=== PATIENT | female | born 1945 | race Caucasian/White ===

== ENCOUNTER 2023-06-17 23:24 | Inpatient (IN) | payer OTHER ==
[~2023-06-17] VITALS: Ht 162.6 cm; Wt 89.3 kg
[2023-06-18] VITALS (77 sets, daily range): BP systolic 78–153; BP diastolic 34–138
--- NOTE | 2023-06-18 01:40 | NUR ---
ARRIVAL PATIENT ARRIVED TO ICU 2 VIA FLIGHT CREW. PATIENT TRANSFER TO ICU BED WITH SLIDER SHEET AND PLACED ON ICU MONITORS. PATIENT OPENS EYES SLIGHTLY AND MOANING, MOVING ALL EXTREMITIES AND RESISTING HAVING ARMS AND LEGS MOVED. PATIENT INCONT OF MEDIUM DARK BROWN STOOL, ANUS AND PERIAREA RED AND BLEEDING. COCCYX WITH LARGE BLACK WOUND, UPPER BACK LEFT SCAPULA WITH ABRASION AND WOUND. BOTH HEALS WITH PRESSURE WOUNDS. ABRASION TO CHIN. BEDBATH DONE AND PICTURES TAKEN OF WOUNDS. TREMOR TO BOTH UPPER ARMS WITH STIMULI. NATION IN PLACE (PLACED AT [facility] IN THEIR ED) DRAINING HAZY EPIFANIO URINE. DOCTOR KIMBERLEY IN TO SEE PATIENT SEE ORDERS.
[2023-06-18 02:26] LABS: Base Excess Venous -5.7 mmol/L; Bicarbonate Venous 20.5 mmol/L (24.0-30.0); PCO2 Venous 28.9 mmHg (38-42); pH Blood Venous 7.42 (7.34-7.37)
[2023-06-18 02:30] LABS: BASOPHILS ABSOLUTE AUTO 0.05 K/mm3 (0.00-0.23); BASOPHILS PERCENT AUTO 0 % (0-2); EOSINOPHILS PERCENT AUTO 0 % (0-6); Hemoglobin 10.7 g/dL (11.5-16.0); IMMATURE GRAN ABSOLUTE AUTO 0.29 K/mm3 (0.00-0.10); IMMATURE GRAN PERCENT AUTO 2 % (0-1); LYMPHOCYTES ABSOLUTE AUTO 0.68 K/mm3 (0.84-5.20); LYMPHOCYTES PERCENT AUTO 4 % (21-46); MONOCYTES ABSOLUTE AUTO 1.27 K/mm3 (0.16-1.47); MONOCYTES PERCENT AUTO 8 % (4-13); Mean Corpuscular HGB 29.2 pg (26.0-34.0); Mean Corpuscular HGB Conc 33.4 g/dL (31.5-36.5); Mean Corpuscular Volume 87 fL (80-100); Mean Platelet Volume 10.2 fL (9.1-12.4); NEUTROPHILS ABSOLUTE AUTO 13.88 K/mm3 (1.96-9.15); NEUTROPHILS PERCENT AUTO 86 % (41-73); Platelet Count 288 K/mm3 (150-400); RDW Coefficient Variation 14.9 % (11.7-14.2); RDW Standard Deviation 47.9 fL (35.1-46.3); Red Blood Cell Count 3.66 M/mm3 (3.80-5.20); White Blood Cell Count 16.17 K/mm3 (4.00-11.30)
[2023-06-18 03:15] LABS: Magnesium, Blood 2.8 mg/dL (1.6-2.4)
[2023-06-18 03:17] LABS: Albumin, Blood 1.7 g/dL (3.4-5.0); Albumin/Globulin Ratio 0.5 (0.8-1.8); Bilirubin, Total 0.3 mg/dL (0.1-1.0); Calcium, Blood 8.3 mg/dL (8.5-10.1); Creatinine, Blood 6.67 mg/dL (0.40-1.00); Globulin, Blood 3.5 g/dL (2.2-4.0); Phosphorus, Blood 6.3 mg/dL (2.5-4.9); Potassium, Blood 4.7 mmol/L (3.5-5.5); Total Protein, Blood 5.2 g/dL (6.4-8.2)
[2023-06-18 03:18] LABS: Bun/Creatinine Ratio 28.2 (12.0-20.0)
[2023-06-18 03:31] LABS: Source, Urine Foley catheter
[2023-06-18 03:49] LABS: Blood, Urine 5+ (Neg); Glucose Qualitative, Urine Neg (Neg); Ketones, Urine Neg (Neg); Leukocyte Esterase, Urine 3+ (Neg); Nitrite, Urine Neg (Neg); Protein, Urine 2+ (Neg); Urobilinogen, Urine NORM (Normal)
[2023-06-18 03:59] LABS: Bilirubin, Urine 2+ (Neg)
[2023-06-18 04:00] LABS: Appearance, Urine Turbid (Clear); Color, Urine Amber (P-Yellow)
[2023-06-18] MEDS ORDERED: ACET500 PO (04:00)
[2023-06-18] MEDS ORDERED: ALMACONE SUSPE355 ML PO (04:03)
[2023-06-18] MEDS ORDERED: ASCO500 PO (04:03)
[2023-06-18] MEDS ORDERED: ATOR10 PO (04:04)
[2023-06-18] MEDS ORDERED: THERA-D2000 UNIT PO (04:05)
[2023-06-18] MEDS ORDERED: GABA100 PO (04:08)
[2023-06-18] MEDS ORDERED: Voltaren100 GM TOP (04:08)
[2023-06-18 04:11] LABS: Source, Urine Foley catheter
[2023-06-18] MEDS ORDERED: XOPENEX HFA15 GM INH (04:11)
[2023-06-18 04:12] LABS: Bacteria Many /hpf; Red Blood Cells, Urine 25-50 /hpf (0-2); Squamous Epithelial Cells Few /hpf (Few); White Blood Cells, Urine 25-50 /hpf (0-5)
[2023-06-18] MEDS ORDERED: LISI20 PO (04:12)
[2023-06-18] MEDS ORDERED: METO25 PO (04:13)
[2023-06-18] MEDS ORDERED: OMEP20ER PO (04:13)
[2023-06-18] MEDS ORDERED: ONDA4ODT MM (04:16)
[2023-06-18] MEDS ORDERED: TIZA4 PO (04:19)
[2023-06-18] MEDS ORDERED: WARF5 PO (04:23)
--- NOTE | 2023-06-18 07:00 | NUR ---
SUMMARY PATIENT CONTINUES TO HAVE MOANING OFF AND ON, INCREASING WITH ANY STIMULI AND RESISTANT TO REPOSITIONING. NO MOVEMENT SEEN IN EXTREMITIES, BUT HOLDING ARMS AND LEGS STIFF WHEN ATTEMPTING TO POSITION THEM. AT BASELINE PATIENT IS DEAF AND USES ASL FOR COMMUNICATION . MULTIPLE WOUNDS, WOUND TO UPPER BACK APPEARS TO BE A BLISTER BUT IS BLACK AT BASE, NO DRAINAGE. COCCYX WOUND BLACK WITH SEROSANG DRAINAGE, SWAB SENT TO LAB. RECTAL AREA BRIGHT RED EXCORIATED WITH SKIN BLEEDING MODERATE AMT. COCCYX AND RECTUM VERY FOUL SMELLING. BOTH HEELS WITH PRESSURE WOUNDS WITH SKIN INTACT. ALL WOUNDS CLEANSED WITH SKINTEGRITY AND COVERED WITH FOAM DRESSING. CHIN HAS ABRASION THAT WAS CLEANSED AND LEFT OPEN TO AIR. HYPOTENSION CONTINUES, RESPONDING WELL TO IV FLUID BOLUS, BUT NOT MAINTAINING AFTER BOLUS COMPLETE. DOCTOR KIMBERLEY AWARE OF AM LABS, PROVIDING NEW ORDERS. NATION DRAINING HAZY EPIFANIO URINE.
--- NOTE | 2023-06-18 07:15 | NUR ---
Assumed care of pt at 0700. Report received from Alis ENCARNACION. Per report, patient is deaf. Encephalopathic and unable to meaninfully interact with mitten sewer. Moans and yells spontaneously, increased in frequency and volume with pressure stimulus. SpO2 90% or greater room air. SR per monitor, rate 90s. BP low. SBP 90s with MAP 55-60. LR bolus finishing during report. Mcdonald catheter placed at sending hospital with yellow urine output.
[2023-06-18 07:55] LABS: International Normalized Ratio 3.46; Prothrombin Time Results 33.9 Sec (9.7-11.5)
[2023-06-18 08:43] LABS: U Amphetamine Screen Not Detected; U Barbituate Screen Not Detected; U Benzodiazapine Screen Not Detected; U Buprenorphine Screen Not Detected; U Cannabinoids Screen Not Detected; U Cocaine Screen Not Detected; U Methadone Screen Not Detected; U Methamphetamine Screen Not Detected; U Opiates Screen Not Detected; U Oxycodone Screen Not Detected; U Phencyclidine Screen Not Detected; U Propoxyphene Screen Not Detected
--- NOTE | 2023-06-18 08:44 | NUR ---
Nephrology and surgical consult notified by transmitter engineer in charge. This RN placed call to Dr Suresh to discuss pt's blood pressure. Provider prescribed additional LR bolus now.
[2023-06-18 09:55] LABS: Creatinine, Blood 5.52 mg/dL (0.40-1.00); Potassium, Blood 4.3 mmol/L (3.5-5.5)
[2023-06-18 09:56] LABS: Bun/Creatinine Ratio 31.5 (12.0-20.0)
--- NOTE | 2023-06-18 11:03 | NUR ---
Discussed pt's BP with Dr Woo and Dr Suresh. Receiving 1/[address] Woo. PICC line being placed by hemodialysis charge nurse in anticipation of vasopressor administration. Currently on 2 LPM via face mask.
[2023-06-18 11:51] LABS: Source, Urine Foley catheter
[2023-06-18 11:56] LABS: Bilirubin, Urine Neg (Neg); Blood, Urine 5+ (Neg); Glucose Qualitative, Urine Neg (Neg); Ketones, Urine Neg (Neg); Leukocyte Esterase, Urine 1+ (Neg); Nitrite, Urine Neg (Neg); Protein, Urine 2+ (Neg); Urobilinogen, Urine NORM (Normal)
[2023-06-18 12:14] LABS: Appearance, Urine Hazy (Clear); Bacteria Few /hpf; Color, Urine Yellow (P-Yellow); Granular Casts 0-2 /lpf (0); Hyaline Casts 0-2 /lpf (0-2); Squamous Epithelial Cells Rare /hpf (Few)
[2023-06-18 12:36] LABS: Hemoglobin 9.9 g/dL (11.5-16.0); Mean Corpuscular HGB 28.6 pg (26.0-34.0); Mean Corpuscular Volume 87 fL (80-100); Mean Platelet Volume 10.7 fL (9.1-12.4); NRBC ABSOLUTE 0.02 K/mm3 (0.00-0.02); NRBC Auto 0.1 /100 WBC (0.0-0.2); Platelet Count 276 K/mm3 (150-400); RDW Coefficient Variation 14.9 % (11.7-14.2); RDW Standard Deviation 47.5 fL (35.1-46.3); Red Blood Cell Count 3.46 M/mm3 (3.80-5.20); White Blood Cell Count 13.45 K/mm3 (4.00-11.30)
[2023-06-18 12:58] LABS: BAND PERCENT MAN 6 % (0-8); BASOPHILS PERCENT MAN 0 % (0-2); EOSINOPHILS PERCENT MAN 0 % (0-6); LYMPHOCYTES ABSOLUTE MAN 1.07 K/mm3 (0.84-5.20); LYMPHOCYTES PERCENT MAN 8 % (21-46); METAMYELOCYTE ABSOLUTE MAN 0.67 K/mm3 (0.00-0.00); METAMYELOCYTE PERCENT MAN 5 % (0-0); MONOCYTES ABSOLUTE MAN 0.67 K/mm3 (0.16-1.47); MONOCYTES PERCENT MAN 5 % (4-13); NEUTROPHILS ABSOLUTE MAN 11.02 K/mm3 (1.96-9.15); SEG NEUTROPHILS PERCENT MAN 76 % (41-73); TOTAL CELLS COUNTED 100
[2023-06-18 16:15] LABS: Vancomycin, Random 15.7 ug/mL
--- NOTE | 2023-06-18 18:31 | NUR ---
SUMMARY Neuro/Musc: Pt is reportedly deaf. Opens eyes spontaneously, makes eye contact and tracks this RN as she moves across the room. No response when this RN talks to her. Pt moans with all care provided. No words produced. Remains drowsy and often rests with eyes closed in absence of stimulation. Pt is not able to meaningfully cooperate with engineering aide at this time. Pupils 4 mm, PERRL. Moves all extremities with equal strength and range of motion. Total care for all ADLs. Resp: Lungs clear, dim in bases. Required 2-4 LPM for majority of day for sporadic SpO2 desaturation. Currently on room air and SpO2 is 96%. Cardiac: Sinus rhythm this shift. Levophed started at 2 mcg/min and increased to 4 mcg/min towards end of shift. BP stable. PICC line inserted this shift. GI: Rectal tube inserted due to liquid brown BM and severely excoriated perianal area. : Good urine output from cristobal catheter. 24 hour urine collection in progress. Skin: All wounds cleansed with saline this shift. Upper back blood blister popped, dressed with mepitel, ABD pad, medipore tape. Sacrum yielded large amount of purulent pink drainage. Dressed with ABD pad and medipore tape. Mepilex to bilat heels were no longer intact so new mepilex was appiled and pink "egg crate" heel protectors added. Miconazole powder added to groin and breast folds. Psych: No friends/family/etc. called unit for update on patient.
[2023-06-19] VITALS (97 sets, daily range): BP systolic 69–152; BP diastolic 6–77
[2023-06-19 03:39] LABS: Hematocrit 29.6 % (33.0-51.0); Hemoglobin 9.8 g/dL (11.5-16.0); Mean Corpuscular HGB 28.4 pg (26.0-34.0); Mean Corpuscular HGB Conc 33.1 g/dL (31.5-36.5); Mean Corpuscular Volume 86 fL (80-100); Mean Platelet Volume 10.3 fL (9.1-12.4); Platelet Count 260 K/mm3 (150-400); RDW Coefficient Variation 14.6 % (11.7-14.2); RDW Standard Deviation 45.6 fL (35.1-46.3); Red Blood Cell Count 3.45 M/mm3 (3.80-5.20); White Blood Cell Count 11.83 K/mm3 (4.00-11.30)
[2023-06-19 03:52] LABS: International Normalized Ratio 3.2; Prothrombin Time Results 31.5 Sec (9.7-11.5)
[2023-06-19 04:02] LABS: BAND PERCENT MAN 2 % (0-8); BASOPHILS PERCENT MAN 0 % (0-2); EOSINOPHILS ABSOLUTE MAN 0.11 K/mm3 (0.00-0.68); EOSINOPHILS PERCENT MAN 1 % (0-6); LYMPHOCYTES PERCENT MAN 11 % (21-46); MONOCYTES ABSOLUTE MAN 0.59 K/mm3 (0.16-1.47); MONOCYTES PERCENT MAN 5 % (4-13); MYELOCYTE ABSOLUTE MAN 0.11 K/mm3 (0.00-0.00); MYELOCYTE PERCENT MAN 1 % (0-0); SEG NEUTROPHILS PERCENT MAN 80 % (41-73); TOTAL CELLS COUNTED 100
[2023-06-19 04:05] LABS: Magnesium, Blood 2.3 mg/dL (1.6-2.4); Uric Acid, Blood 10.7 mg/dL (2.6-6.0)
[2023-06-19 04:06] LABS: Albumin, Blood 1.6 g/dL (3.4-5.0); Albumin/Globulin Ratio 0.5 (0.8-1.8); Bilirubin, Total 0.3 mg/dL (0.1-1.0); Bun/Creatinine Ratio 41.9 (12.0-20.0); Calcium, Blood 8.3 mg/dL (8.5-10.1); Creatinine, Blood 3.27 mg/dL (0.40-1.00); Globulin, Blood 3.2 g/dL (2.2-4.0); Phosphorus, Blood 4.2 mg/dL (2.5-4.9); Potassium, Blood 3.6 mmol/L (3.5-5.5); Total Protein, Blood 4.8 g/dL (6.4-8.2)
--- NOTE | 2023-06-19 06:04 | NUR ---
PATIENT OPENS EYES SPONTANEOUSLY AND MINIMALLY MOVES ALL EXTREMITIES. DOES NOT TRACK STAFF WITH EYES. MOANS WITH ANY STIMULATION. NO RESPONSE TO HAND GESTURES FROM STAFF. SR/ST. LEVOPHED INCREASED TO 6 TO MAINTAIN MAP >65. OXYMASK PLACED ON PATIENT WHILE SLEEPING, ROOM AIR WHEN AWAKE. NPO AND RECTAL TUBE IN PLACE. NATION IN PLACE AND CURRENTLY OBTAINING 24HR URINE COLLECTION. DR MAN UPDATED ON PATIENT LABS.
--- NOTE | 2023-06-19 07:15 | NUR ---
Assumed care of pt at 0700. Report received from Andrew ENCARNACION. Pt opens eyes spontaneously. Able to understand this RN through demostration and reading lips. SpO2 90% or greater with 2 LPM oxymask. SR per monitor. BP stable with 6 mcg/min levophed.
[2023-06-19 12:38] LABS: Protein, Urine Quantitative 39.7 mg/dL (0.0-11.9)
--- NOTE | 2023-06-19 12:48 | NUR ---
BLOOD CULTURE RESULT FROM [facility]: Francoise FROM [facility] CALLED TO REPORT 1 SET OF POSITIVE BLOOD CULTURES FROM SAMPLE DRAWN 06/17 - PRELIMINARY REPORT OF GRAM POSITIVE BACILLI.
[2023-06-19 16:26] LABS: Vancomycin, Random 16.4 ug/mL
--- NOTE | 2023-06-19 18:02 | NUR ---
SUMMARY Neuro/Musc/Psych: Alert. Able to understand this RN by reading lips and/turret lathe set up operator demonstration. Able to follow commands; pt stuck out tongue and opened mouth for oral care on demand. Oral care provided. Pt unable to understand to spit out magic mouthwash. Provided with ice chips and pt tolerated these well without signs of aspiration or choking. agency appointments supervisor services provided remotly through laptop around noon, prior to bed bath. Wastewater Operator stated she feels that the patient understood her. During interaction, pt's eyes widened and she maintained attention to computer screen and provided subtle yes/no nods as the heading saw operator signed. Pt unable to reciporicate communication other than nodding head. Pt's upper extremties are rigid and she has poor range of motion to bilateral shoulder, elbows, and wrists. Pt also yells out or moans with any passive ROM that occurs during ADLs. After interacting with virtual heading saw operator for 5-10 minutes, pt became very lethargic and struggled to stay awake. Physical heading saw operator in room to see patient around 1500. She met with Dr Suresh to educate patient on plan of care. The heading saw operator stated she recognizes Mahi and has worked with her before. Patient much more lethargic but appeared to understand the heading saw operator. Interacted with physical heading saw operator even less than the virtual heading saw operator. Through asking questions and receivng subtle yes/no answers, inferred that patient walks with cane at baseline. Pt does not remember falling and is surprised to learn that she is in [place]. Plan for physical heading saw operator to see patient tomorrow between 0730 and 0830. Have attempted to communicate with patient by writing. Patient acknowledges the writing does not seem to understand. Through gesturing this RN inferred that pt typically wears glasses. No glasses in the room at this time. Total care for all ADLs. Dental hygenist in to see patient today. Cleaned a large amount of dried blood from patient's mouth. States that patient severely bit her tongue and some point and there are resultant wounds and ecchymosis to tongue. She recommended chlorhexidine and magic mouthwash. Acknowledges that chlorhexidine for oral care is not standardly used in ICU anymore, but states it wound be best for that patient's mouth at this time. Recommendations given to Dr He and new orders given. Resp: SpO2 90% or greater with 2 LPM with oxymask. Requires O2 while sleeping but it can typically be weaned off while she is awake. Cardiac: SR per monitor. Levophed at 2 mcg/min. GI: Rectal tube in place with scant amount of liquid drainage into bag. : Good urine output into cristobal catheter. Skin: Wounds to back and sacrum were cleaned with skintegrity skin cleanser today and dressed with fresh ABD pad and medipore tape. Dr Wilson in to see patient and stated for pt to be NPO after midnight in anticipation for surgery tomorrow.
--- NOTE | 2023-06-19 22:46 | NUR ---
ASSUMED CARE AT 1900 PATIENT IS ALERT AND ORIENTED TO FOLLOWING COMMANDS AND SELF. DEAF AT BASELINE, NODS NO TO PAIN. 02 SATS 95% ON 2-5L VIA MASK WHILE SLEEPING. HR SR 80s, BP HYPOTENSIVE, LEVOPHED INFUSING TO MAINTAIN MAP >65. DRESSINGS OVER WOUNDS C/D/I. TEMP NATION PATENT AND DRAINING TO GRAVITY. RECTAL TUBE IN PLACE DRAINING LIQUID BROWN TO GRAVITY. PATIENT REPOSITIONED AND ORAL CARE DONE. NPO DUE TO ASPIRIATION RISK.
[2023-06-20] VITALS (67 sets, daily range): BP systolic 86–155; BP diastolic 38–142
[2023-06-20 03:33] LABS: Hematocrit 29.7 % (33.0-51.0); Hemoglobin 9.6 g/dL (11.5-16.0); Mean Corpuscular HGB 28.2 pg (26.0-34.0); Mean Corpuscular HGB Conc 32.3 g/dL (31.5-36.5); Mean Corpuscular Volume 87 fL (80-100); Platelet Count 245 K/mm3 (150-400); RDW Coefficient Variation 14.3 % (11.7-14.2); White Blood Cell Count 11.54 K/mm3 (4.00-11.30)
[2023-06-20 03:49] LABS: International Normalized Ratio 2.1; Prothrombin Time Results 21.1 Sec (9.7-11.5)
[2023-06-20 03:54] LABS: Alanine Aminotransfer (ALT/SGP 98 U/L (12-78); Albumin, Blood 1.5 g/dL (3.4-5.0); Albumin/Globulin Ratio 0.4 (0.8-1.8); Alk Phos 118 U/L (50-136); Anion Gap 7 mmol/L (6-16); Aspartate Aminotrans (AST/SGOT 248 U/L (12-37); Bilirubin, Total 0.4 mg/dL (0.1-1.0); Blood Urea Nitrogen 83 mg/dL (8-24); Bun/Creatinine Ratio 47.4 (12.0-20.0); CO2, Blood 28 mmol/L (21-32); Calcium, Blood 8.6 mg/dL (8.5-10.1); Chloride, Blood 112 mmol/L (98-108); Creatinine, Blood 1.75 mg/dL (0.40-1.00); Globulin, Blood 3.7 g/dL (2.2-4.0); Glomerular Filtration Rate 29 (60-); Glucose, Blood 130 mg/dL (70-99); Phosphorus, Blood 2.7 mg/dL (2.5-4.9); Potassium, Blood 3.2 mmol/L (3.5-5.5); Sodium, Blood 147 mmol/L (136-145); Total Protein, Blood 5.2 g/dL (6.4-8.2); Vancomycin, Random 12.7 ug/mL
--- NOTE | 2023-06-20 06:45 | NUR ---
SHIFT SUMMARY RADHA HAS NOT HAD ANY SIGNIFICANT CHANGES DURING THIS SHIFT. PT IS A&O TO SELF AND MUMBLES WORDS THAT ARE DIFFICULT TO INTERPRET. PT DENIES PAIN EVEN THOUGH THEY CLENCH THEIR ARMS AND GROAN WHEN BEING MOVED. PT HAS BEEN ON AND OFF THE OXIMASK TODAY @2L, 02 SATS CURRENTLY 94%. CARDIAC MONITORING HAS REFLECTED NSR THIS SHIFT, HEART RATE CURRENTLY 79. LEVOPHED IS CURRENTLY ON STANDBY. POTASSIUM CAME BACK AT 3.2 AT 0312, SO ORDERED KCL 100 ML TO RUN AT 50 ML/HR. KCL IS CURRENTLY RUNNING CONCURRENTLY WITH D5 @150. RECTAL TUBE AND TEMP NATION PATENT AND DRAINING TO GRAVITY. WILL CONTINUE TO MONITOR UNTIL CARE IS TRANSITIONED TO DAY SHIFT.
--- NOTE | 2023-06-20 11:21 | NUR ---
Assumed care of pt at 0700. Report received from Qi RN and Myesha RN. Four H Agent, Hannah, at bedside from [id number]. At this time, Dr Preston, Dr Suresh, and Dr Velázquez in to see patient. Additionally, pt worked with Melania from occupational therapy. Patient able to follow directions and provide answers to registered nurse first assistant that were not obvious to hospital staff. Pt continues to have trouble signing and mostly commincates through yes/no nods and mouthing words. Melania discussed ROM concerns with Dr Suresh who stated she would order imaging and provide pain meds. No surgery today; plan to proceed with surgical debridement when patient's INR is less than 1.5
[2023-06-20 12:22] LABS: Potassium, Blood 3.4 mmol/L (3.5-5.5)
--- NOTE | 2023-06-20 18:03 | NUR ---
SUMMARY Neuro/Musc/Psych: Worked with in room historic interpreter this morning. Maintained attention and was interactive for entire duration of historic interpreter's stay. Pt reliably followed commands for OT. The historic interpreter was able to communicate subtle gestures and mouthing of words by the patient to answer the staff's questions. Patient's answers were contextually appropriate. The historic interpreter received many indications that the patient is having pain; Dr Suresh stated plan to prescribe pain medication. When Dr Preston in to see patient, he discussed the importance of surgical debridement as well as the risks. Patient consented to the procedure. Still unable to sign documenation or use hands for ASL due to stiffness and weakness. Noted that patient cannot move LUE when instructed to do so. XRay ordered by Dr Suresh. RUE, RLE, LLE are all stiff and have limited range of motion. Pt up in chair for 4 hours today. While up in chair, pt was assessed by speech therapist with video historic interpreter. Speech therapy consulted because this RN performed bedside swallow exam with patient and noted that she had a dry cough following PO intake. Additionally, swallowing sounded forced and laborious. While conferencing with video historic interpreter, patient had trouble focusing on the computer and was more interested with the people in the room. Able to follow commands through demostration only. New orders placed re: med administration and PO intake. One dose of IV fentanyl given before lifting patient to chair and one dose PO percocet given after pt cleared for meds crushed in applesauce. Patient has been resting for majority of afternoon since receiving Percocet. ADLs: Repositioned Q2H. Total care for all ADLs. CHG bath given. Oral care Q4H and preceeding all PO intake. Resp: Lungs clear, dim in bases. On room air from beginning of shift until approx 1700. Then placed on 2 LPM oxymask due to drop in SpO2 while sleeping. SpO2 currently 97% Cardiac: SR, rate 60s-70s. BP stable. GI: Rectal tube remains in place with drainage of liquid brown stool in collection tubing. Barrier cream to perianal excoriations. : Good urine output from cristobal catheter today. Skin: Dressings changed to upper back and sacrum today. Sacrum pressure sore cleaned with skintegrity skin cleanser. Bilateral heel mepilex and egg crate heel protectors in place.
--- NOTE | 2023-06-20 21:13 | NUR ---
ASSUMED CARE PT AROUSES TO VERBAL/PHYSICAL STIMULI; SOMNULENT AND UNABLE TO STAY AWAKE FOR MORE THAN 2-3 SECONDS. CARPENTER HELPER AT BEDSIDE AND WAS UNABLE TO COMMUNICATE W/ PT. PT WAS ABLE TO SMILE WHEN ASKED TO. PERRLA;VSS. NATION AND RECTAL TUBE PATENT AND DRAINING TO GRAVITY.
--- NOTE | 2023-06-20 22:25 | NUR ---
UPDATE PT IS MORE ALERT AND SPONTANEOUSLY OPENS EYES. PT ABLE TO COMMUNICATE THAT SHE IS IN PAIN W/ SIGN LANGUAGE THAT STRETCH PRESS OPERATOR TAUGHT THIS RN. PT COMMUNICATES WELL WITH NODDING, SHAKING, AND SHRUGGING.
[2023-06-21] VITALS (8 sets, daily range): BP systolic 117–150; BP diastolic 56–64
--- NOTE | 2023-06-21 03:38 | NUR ---
TRANSFER: PT ARRIVED TO PCU 3 FROM ICU 2 AT 0325. PT ALERT, RESPONDS TO NOXIOUS STIMULI. PT DEAF, ABLE TO COMMUNICATE VIA NODDING AND SHAKING HEAD. TRANSFER CONTROLLER LAPTOP AT BEDSIDE. IN PERSON TRANSFER CONTROLLER TO BE IN AT 0800 THIS MORNING. BP STABLE, HR SR 70'S, AFEBRILE, SATS >90% ON ROOM AIR. RESPIRATIONS EVEN AND UNLABORED. PT WITH MUTIPLE WOUNDS, SEE CHART. PLAN FOR POSS I&D TODAY PENDING INR RESULTS. PT CURRENTLY NPO. TEMP NATION IN PLACE DRAINING YELLOW URINE TO GRAVITY. RECTAL TUBE IN PLACE WITH BROWN LIQUID STOOL. D5 GTT IN OBEY @125M/HR. PICC IN OBEY, DRAWS AND FLUSHED. PT REPOS TO L SIDE, FEET FLOATING. BED IN LOW, CALL LIGHT IN REACH.
--- NOTE | 2023-06-21 03:43 | NUR ---
TRANSFER PT TRANSFERRED TO PCU 3 WITH BELONGINGS/MEDS.
[2023-06-21 03:52] LABS: Hematocrit 28.6 % (33.0-51.0); Hemoglobin 9.3 g/dL (11.5-16.0); Mean Corpuscular HGB 28.7 pg (26.0-34.0); Mean Corpuscular HGB Conc 32.5 g/dL (31.5-36.5); Mean Corpuscular Volume 88 fL (80-100); Mean Platelet Volume 10.2 fL (9.1-12.4); Platelet Count 229 K/mm3 (150-400); RDW Coefficient Variation 14.1 % (11.7-14.2); RDW Standard Deviation 45.4 fL (35.1-46.3); Red Blood Cell Count 3.24 M/mm3 (3.80-5.20); White Blood Cell Count 10.71 K/mm3 (4.00-11.30)
[2023-06-21 04:05] LABS: International Normalized Ratio 2.13; Prothrombin Time Results 21.4 Sec (9.7-11.5)
[2023-06-21 04:10] LABS: Albumin, Blood 1.6 g/dL (3.4-5.0); Anion Gap 3 mmol/L (6-16); Blood Urea Nitrogen 43 mg/dL (8-24); Bun/Creatinine Ratio 33.3 (12.0-20.0); CO2, Blood 30 mmol/L (21-32); Calcium, Blood 8.5 mg/dL (8.5-10.1); Chloride, Blood 111 mmol/L (98-108); Creatinine, Blood 1.29 mg/dL (0.40-1.00); Glomerular Filtration Rate 42 (60-); Glucose, Blood 112 mg/dL (70-99); Magnesium, Blood 1.7 mg/dL (1.6-2.4); Phosphorus, Blood 2.2 mg/dL (2.5-4.9); Potassium, Blood 3.6 mmol/L (3.5-5.5); Sodium, Blood 144 mmol/L (136-145)
[2023-06-21 04:24] LABS: BAND PERCENT MAN 9 % (0-8); BASOPHILS PERCENT MAN 1 % (0-2); EOSINOPHILS ABSOLUTE MAN 0.32 K/mm3 (0.00-0.68); EOSINOPHILS PERCENT MAN 3 % (0-6); LYMPHOCYTES ABSOLUTE MAN 1.82 K/mm3 (0.84-5.20); LYMPHOCYTES PERCENT MAN 17 % (21-46); METAMYELOCYTE ABSOLUTE MAN 0.32 K/mm3 (0.00-0.00); METAMYELOCYTE PERCENT MAN 3 % (0-0); MONOCYTES ABSOLUTE MAN 0.85 K/mm3 (0.16-1.47); MONOCYTES PERCENT MAN 8 % (4-13); MYELOCYTE ABSOLUTE MAN 0.32 K/mm3 (0.00-0.00); MYELOCYTE PERCENT MAN 3 % (0-0); NEUTROPHILS ABSOLUTE MAN 6.96 K/mm3 (1.96-9.15); SEG NEUTROPHILS PERCENT MAN 56 % (41-73); TOTAL CELLS COUNTED 100
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
--- NOTE | 2023-06-21 18:51 | NUR ---
PT SUMMARY: NO ACUTE CHANGE SINCE THIS MORNING VITALS REMAINED STABLE, PT TOLERATING PUREE DIET. BED BATH WAS COMPLETED ALL DRESSINGS WERE REDRESSED, EGG CRATE PLACE TO PROMOTOE WOUND HEALING, PT HAS BEEN REPOSITIONED Q2 HRS. NO CALL BACK RECEIVED FROM APS TODAY. VERNA BAEZ TIP BANDING MACHINE OPERATOR LEFT LSIT OF QUESTIONS FOR BLACK ASH WORKER TO ASK THE PT TONIGHT. CLINIMIX RUNNING AT 50 MLS/ HR. PT RESTING IN BED WITH CALL LIGHTS IN REACH, WILL REPORT TO TOSHIA ENCARNACION
[2023-06-22] VITALS: BP 124/58
[2023-06-22 04:19] VITALS: BP 108/45
[2023-06-22 04:44] LABS: Hematocrit 28.9 % (33.0-51.0); Hemoglobin 9.3 g/dL (11.5-16.0)
[2023-06-22 04:59] LABS: Albumin, Blood 1.5 g/dL (3.4-5.0); Anion Gap 3 mmol/L (6-16); Blood Urea Nitrogen 35 mg/dL (8-24); CO2, Blood 28 mmol/L (21-32); Calcium, Blood 8.8 mg/dL (8.5-10.1); Chloride, Blood 118 mmol/L (98-108); Creatinine, Blood 1.06 mg/dL (0.40-1.00); Glomerular Filtration Rate 54 (60-); Glucose, Blood 119 mg/dL (70-99); Magnesium, Blood 1.7 mg/dL (1.6-2.4); Phosphorus, Blood 2.2 mg/dL (2.5-4.9); Sodium, Blood 149 mmol/L (136-145)
[2023-06-22 05:00] LABS: International Normalized Ratio 1.45; Prothrombin Time Results 14.9 Sec (9.7-11.5)
--- NOTE | 2023-06-22 06:13 | NUR ---
SHIFT SUMMARY PT LETHARGIC AND UNABLE TO BE AROUSED AT BEGINNING OF SHIFT. AROUND 0000 PT BECAME MORE ALERT AND WAS ABLE TO FOLLOW COMMMANDS, ABLE TO ANSWER SOME QUESTIONS ALTHOUGH SOME CONFUSION NOTICED. VSS. PT REPORTING PAIN IN LUE AND LLE, ALSO HEAD AND BACK. DECLINES MEDICATION FOR PAIN. DENIES CP OR PRESSURE. DENIES SOB. NATION IN PLACE AND DRAINING TO GRAVITY. RECTAL TUBE IN PLACE WITH NO - VERY MINIMAL OUTPUT. SMALL AMOUNT OF BLOOD NOTED AROUND ANAL AREA. PT REPOSITIONED Q2 OR PRN. PT C/O OF PAIN WITH MOVEMENT. MEPLIEX ON COCCYX CHANGED THIS SHIFT. OTHER MEPILEX C/D/I. PT ASKING FOR AND DRINKING WATER, TOLERATING WELL. CLINIMIX INFUSING PER EMAR. NO ACUTE CHANGES. WILL UPDATE ONCOMING RN.
[2023-06-22 07:42] VITALS: BP 133/62
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
--- NOTE | 2023-06-22 12:11 | NUR ---
DR LYNN AND ANESTHESIOLOGIST CAME BY TO CONSENT PT FOR THE I&D PROCEDURE. PT HAD BREAKFAST THIS MORNING SO TRANG PROCEDURE GOT RESCHEDULED FOR TOMORROW. DR FORBES CAME BY ORDERED MRI FOR POSSIBLE CVA/STROKE D/T RIGHT ARM FLACCIDITY. MRI FORM SIGNED BY PT WITH THE HELP OF THE SOLDERING MACHINE OPERATOR AUTOMATIC. AWAITING FOR MRI TO GET DONE, VITALS HAS BEEN STABLE. WILL CONTINUE TO MONITOR
[2023-06-22 12:17] VITALS: BP 126/59
[2023-06-22 15:45] VITALS: BP 136/58
--- NOTE | 2023-06-22 17:42 | NUR ---
SHIFT SUMMARY: SEE AM NOTES: NO ACUTE CHANGE FOR THE SHIFT, VITALS HAS BEEN STABLE. MRI RESULT WITH NO SIGNIFICANT CHANGE. PT TO BE NPO AFTER MIDNIGHT FOR I&D PROCEDURE TOMORROW. PT WITH GREAT APPETITE EATING ALMOST 100% OF HER MEALS NO ISSUES. PT HAS BEEN REPOSITIONED Q2HRS, BED BATH COMPLETED FOR THE SHIFT DRESSINGSON COCCYX AND BACK WERE CHANGED. RECTAL TUBE REMOVED PT HAD SOME IRRITATION AROUND RECTAL AREA WITH MINIMAL BLEEDING ALSO PT HASNT HAD ANY STOOL OUTPUT FOR THE SHIFT, ATTENDS IN PLACE. HEEL PROTECTORS AND SCD'S IN PLACE. D5W RUNNING AT 75MLS/HR. LAPTOP ASL REMAINED AVAILABLE PT'S EXCEPTIONAL CHILDREN TEACHER ASSISTANT. NO OTHER ISSUES AT THIS TIME, CALL LIGHTS IN REACH WILL REPORT TO ONCOMING SHIFT
[2023-06-22 19:43] VITALS: BP 156/68
--- NOTE | 2023-06-22 23:58 | NUR ---
AT 1945 COMMUNICATED WITH PATIENT USING FIELD LABORATORY OPERATOR APURVA. PATIENT HAVING DIFFICULTY AT TIMES DUE TO WEAKNESS, USING LEFT ARM MORE THAN RIGHT, YET ABLE TO MOVE RIGHT LEG MORE THAN LEFT LEG. PATIENT C/O PAIN WITH SLIGHT MOVEMENTS. PATIENT ABLE TO RECOGNIZED APURVA (FIELD LABORATORY OPERATOR) UNSURE OF DATE, MONTH OR YEAR. NODDING YES WHEN REMINDED THAT SHE IS IN [facility]. PATIENT ASKING WHAT HAPPENED. PATIENT ABLE TO ASSIST WITH REPOSITIONING, BUT REMAINS VERY WEAK. DRESSING TO HEALS, BACK AND COCCYX CD&I. SOWMYA PO MEDICATIONS CRUSHED IN APPLESAUCE. NEEDING ASSISTANCE WITH EATING. PLAN FOR NPO AFTER MIDNOC FOR I&D TO COCCYX WOUND.
[2023-06-23] VITALS (13 sets, daily range): BP systolic 130–154; BP diastolic 55–76
[2023-06-23 04:01] LABS: Hematocrit 27.7 % (33.0-51.0); Hemoglobin 8.9 g/dL (11.5-16.0); Mean Corpuscular HGB 28.7 pg (26.0-34.0); Mean Corpuscular HGB Conc 32.1 g/dL (31.5-36.5); Mean Corpuscular Volume 89 fL (80-100); Mean Platelet Volume 10.1 fL (9.1-12.4); Platelet Count 220 K/mm3 (150-400); RDW Coefficient Variation 13.5 % (11.7-14.2); RDW Standard Deviation 44.5 fL (35.1-46.3); White Blood Cell Count 10.97 K/mm3 (4.00-11.30)
[2023-06-23 04:30] LABS: Albumin, Blood 1.6 g/dL (3.4-5.0); Anion Gap 3 mmol/L (6-16); Blood Urea Nitrogen 27 mg/dL (8-24); Bun/Creatinine Ratio 30.4 (12.0-20.0); CO2, Blood 26 mmol/L (21-32); Calcium, Blood 8.5 mg/dL (8.5-10.1); Chloride, Blood 114 mmol/L (98-108); Creatinine, Blood 0.89 mg/dL (0.40-1.00); Glomerular Filtration Rate 66 (60-); Glucose, Blood 111 mg/dL (70-99); Phosphorus, Blood 2.2 mg/dL (2.5-4.9); Potassium, Blood 4.2 mmol/L (3.5-5.5); Sodium, Blood 143 mmol/L (136-145)
[2023-06-23 04:39] LABS: BAND PERCENT MAN 5 % (0-8); BASOPHILS PERCENT MAN 1 % (0-2); EOSINOPHILS ABSOLUTE MAN 0.32 K/mm3 (0.00-0.68); EOSINOPHILS PERCENT MAN 3 % (0-6); LYMPHOCYTES % ATYPICAL MANUAL 1 % (0-0); LYMPHOCYTES ABSOLUTE MAN 1.09 K/mm3 (0.84-5.20); LYMPHOCYTES PERCENT MAN 9 % (21-46); METAMYELOCYTE ABSOLUTE MAN 0.32 K/mm3 (0.00-0.00); METAMYELOCYTE PERCENT MAN 3 % (0-0); MONOCYTES ABSOLUTE MAN 0.87 K/mm3 (0.16-1.47); MONOCYTES PERCENT MAN 8 % (4-13); MYELOCYTE ABSOLUTE MAN 0.43 K/mm3 (0.00-0.00); MYELOCYTE PERCENT MAN 4 % (0-0); NEUTROPHILS ABSOLUTE MAN 7.78 K/mm3 (1.96-9.15); SEG NEUTROPHILS PERCENT MAN 66 % (41-73); TOTAL CELLS COUNTED 100
--- NOTE | 2023-06-23 05:18 | NUR ---
PLUMBER HELPER NOTE NOTIFIED BY NURSE TO NOT DO 0600 BLOOD SUGAR.
--- NOTE | 2023-06-23 05:50 | NUR ---
SUMMARY PATIENT SLEEPING OFF AND ON T/O NIGHT, AWAKENS TO TACTILE STIMULI, PATIENT IS DEAF. USING VALET RUNNER WHEN ABLE. PATIENT APPEARS TO BE GETTING STRONGER IN ARMS NIGHT HAS PROGRESSED. DURING ORAL CARE WOUND ON PATIENTS PATIENT HAD SOME BLEEDING FROM WOUND ON HER TONGUE. NATION REMAINS IN PLACE TO HELP PROTECT COCCYX WOUND AND TO MONITOR I&O CLOSELY. NO BM T/O NIGHT ATTENDS REMAIN IN PLACE. PATIENT NPO AFTER MIDNIGHT PLAN FOR DEBRIDEMENT OF COCCYX WOUND
--- NOTE | 2023-06-23 12:04 | NUR ---
PT CURRENTLY TAKEN TO THE OR FOR I&D PROCEDURE ALONG WITH THE BROADCAST OPERATIONS MANAGER
--- NOTE | 2023-06-23 12:22 | NUR ---
PT RECENTLY HERE FROM PCU 3 TO [facility]. TELE WAS NOTIFIED OF PT COMING TO [facility]. CURTAIN SUPERVISOR MONICA FROM [employer] INTERPRETING HERE WITH PT. History, Chart, Medications and Allergies reviewed before start of procedure.Lungs clear T/O to Auscultation. Patient confirms NPO status and agrees with scheduled surgery. Pre-Op teaching done. Pt verbalizes understanding.
--- NOTE | 2023-06-23 12:51 | NUR ---
PT TO OR BY BED WITH TRANSPORTER WHO IS DRESSED TO GO BACK TO OR. TELE NOTIFIED OF PT GOING IN TO PROCEDURE. TELE PLACED IN RECOVERY.
[2023-06-23 17:09] LABS: IMMUNOGLOBULIN A, QN, SERUM 160 mg/dL (64-422); IMMUNOGLOBULIN G, QN, SERUM 498 mg/dL (586-1602); IMMUNOGLOBULIN M, QN, SERUM 42 mg/dL (26-217)
--- NOTE | 2023-06-23 17:50 | NUR ---
PT SUMMARY: PT HAD I&D DONE ON HER COCCYX TODAY PHOTOS IN CHART FOR DOCUMENTATION, ABD PADS IN PLACE KERLIX WRAP WITH DAKINS SOLUTION TO CHANGED DAILY PER ORDER. PT REMAINED ALERTA AND ORIENTED ASL AT THE BEDSIDE EVEN POST PROCEDURE. VITALS REMAINED STABLE. PT TRANSITIONED TO MEDICAL STATUS WITH NO TELE. PT ABLE TO WORK WITH PHYSICAL THERAPIST THIS MORNING PT ABLE TO PARTICIPATE PT WITH SOME IMPROVEMENTON THE LEFT SIDE, PT IS ALSO NOW USING THE LEFT HAND WELL TO SIGN. PT WAS GIVEN A BATH, CATH CARE PROVIDED, REPOSITIONED FOR COMFORT, PT WAS MEDICATED WITH FENTANYL 25MCG X1 POST PROCEDURE. NATION DRAINING VIA GRAVITY CLEAR URINE. PT RESTING AT THIS TIME, CALL LIGHTS IN REACH WILL REPORT TO ONCOMING SHIFT
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
[2023-06-24 04:30] VITALS: BP 131/63
[2023-06-24 04:56] LABS: BASOPHILS ABSOLUTE AUTO 0.05 K/mm3 (0.00-0.23); BASOPHILS PERCENT AUTO 0 % (0-2); EOSINOPHILS ABSOLUTE AUTO 0.02 K/mm3 (0.00-0.68); EOSINOPHILS PERCENT AUTO 0 % (0-6); Hematocrit 27.5 % (33.0-51.0); Hemoglobin 9.1 g/dL (11.5-16.0); IMMATURE GRAN ABSOLUTE AUTO 0.86 K/mm3 (0.00-0.10); IMMATURE GRAN PERCENT AUTO 6 % (0-1); LYMPHOCYTES ABSOLUTE AUTO 1.48 K/mm3 (0.84-5.20); LYMPHOCYTES PERCENT AUTO 10 % (21-46); MONOCYTES ABSOLUTE AUTO 0.82 K/mm3 (0.16-1.47); MONOCYTES PERCENT AUTO 6 % (4-13); Mean Corpuscular HGB Conc 33.1 g/dL (31.5-36.5); Mean Corpuscular Volume 88 fL (80-100); Mean Platelet Volume 9.9 fL (9.1-12.4); NEUTROPHILS ABSOLUTE AUTO 11.75 K/mm3 (1.96-9.15); NEUTROPHILS PERCENT AUTO 79 % (41-73); Platelet Count 242 K/mm3 (150-400); RDW Coefficient Variation 13.4 % (11.7-14.2); RDW Standard Deviation 42.6 fL (35.1-46.3); Red Blood Cell Count 3.14 M/mm3 (3.80-5.20); White Blood Cell Count 14.98 K/mm3 (4.00-11.30)
--- NOTE | 2023-06-24 05:33 | NUR ---
SHIFT SUMMARY PT A&O X3; STILL NOT ORIENTED TO TOWN OR WHERE SHE IS BUT ABLE TO BE REORIENTED. PT RESPONDING APPROPRIATELY TO QUESTIONS, FOLLOWING COMMANDS. PT IS MORE LIVELY AND TALKATIVE THIS SHIFT. PT SMILING AT TIMES. STATES "SHE IS HAPPY AND FEELING MUCH BETTER". VSS; SBP 130'S. HR 70'S, AND SPO2 >94% ON RA. PT AFEBRILE THIS SHIFT HOWEVER FEELING WARM TO THE TOUCH AND SWEATING AT TIMES. PT LEFT ARM AND LEG SEEM TO BE GAINING MORE STRENGTH, PT ABLE TO USE IT MORE AND IS TRYING TO USE IT MORE THAN PREVIOUS. PT NOT COMPLAINING OF PAIN MUCH, RECIEVED PAIN MEDICATION PER EMAR X1 OTHERWISE PT DENIES PAIN AND STATES SHE DOES NOT NEED THE MEDICINE AT THIS TIME. PT REPOSITIONED Q2 OR PRN. DRESSINGS C/D/I. ORAL CARE COMPLETED. PT PO INTAKE IS IMPROVING; SHE HAD A FEW SNACKS AND DRINKING WATER THIS SHIFT. PT ABLE TO REQUEST AND MAKE NEEDS KNOWN. NATION CATHETER IN PLACE, DRAINING YELLOW URINE. 1200 MLS OUT THIS SHIFT. NO BM THIS SHIFT. D5 % INFUSING PER EMAR. PT C/O OF SOME PAIN "SORENESS" IN HER LEFT LEG/HIP WELL HER "PRIVATE AREAS". PT UNSURE OF WHY SHE IS SORE AND HAVING PAIN. WILL UPDATE ONCOMING RN. PT IS CALLING OUT IN HER SLEEP AND APPEARS TO BE HAVING NIGHT TERRORS, WHEN AWAKENED OR DURING CONVERSATION PT STATES "I HAVE BEEN HAVING TERRIBLE DREAMS ABOUT A MEAN MAN AND 2 PEOPLE". PT ALSO STATES SHE HAD A DREAM "THAT SHE WAS FROM A MEAN MAN". PT CALLING OUT AND HAVING NIGHT TERRORS QUITE FREQUENTLY.
[2023-06-24 05:50] LABS: Albumin, Blood 1.7 g/dL (3.4-5.0); Anion Gap 4 mmol/L (6-16); Blood Urea Nitrogen 23 mg/dL (8-24); Bun/Creatinine Ratio 27.4 (12.0-20.0); CO2, Blood 25 mmol/L (21-32); Calcium, Blood 8.5 mg/dL (8.5-10.1); Chloride, Blood 113 mmol/L (98-108); Creatinine, Blood 0.84 mg/dL (0.40-1.00); Ferritin, Serum 160 ng/mL (8-252); Glomerular Filtration Rate 71 (60-); Glucose, Blood 131 mg/dL (70-99); Iron Serum 29 ug/dL (50-170); Magnesium, Blood 1.7 mg/dL (1.6-2.4); Percent Saturation 18.5 % (15.0-50.0); Phosphorus, Blood 2.6 mg/dL (2.5-4.9); Potassium, Blood 4.6 mmol/L (3.5-5.5); Sodium, Blood 142 mmol/L (136-145); Total Iron Binding Capacity 157 ug/dL (250-450)
[2023-06-24 08:00] VITALS: BP 142/65
[2023-06-24 11:20] VITALS: BP 138/54
--- NOTE | 2023-06-24 12:43 | NUR ---
WOUND CARE COCCYX WOUND PHOTO, MEASUREMENTS, AND ASSESSMENT IN HARD CHART. AIR BED AND DIETARY CONSULT PLACED. WOUND BASE IS DARK MAROON AND SHOWING SIGNS OF PRESSURE/BREAKDOWN. DICUSSED NEED FOR FURTHER OFFLOADING WITH PRIMARY AND REWINDER OPERATOR HELPER. PT WITH SHOULDER INJURY SO THIS MAY BE DIFFICULT. EVEN WITH OPTIMAL OFFLOADING AND NUTRITION HEALING OUTCOME IS GUARDED. WILL CONTINUE WITH DAKINS WET TO DRY. IF WOUND BED STARTS TO IMPROVE WOUND VAC MAY BE APPROPRIATE BUT NOT AT THIS TIME.
[2023-06-24 13:10] LABS: ANTIMYELOPEROXIDASE (MPO) ABS <0.2 units (0.0-0.9); ANTIPROTEINASE 3 (PR-3) ABS <0.2 units (0.0-0.9); ATYPICAL PANCA <1:20 titer (Neg:<1:20); CYTOPLASMIC (C-ANCA) <1:20 titer (Neg:<1:20); PERINUCLEAR (P-ANCA) <1:20 titer (Neg:<1:20)
--- NOTE | 2023-06-24 13:33 | NUR ---
AM/AFTERNOON NOTE: PATIENT ALERT AND ORIENTED. MEDICAL LIAISON AT BEDSIDE. PERRLA. MISSING TEETH AND LARGE SORE ON TONGUE. BEDREST AT THIS TIME. PT/OT ORDERS IN PLACE, COMPLETING EXERCISES IN BED PATIENT IS VERY WEAK. PATIENT ABLE TO FEED SELF A FEW BITES BEFORE BECOMING TOO WEAK AND TIRED. DENIES NUMBNESS/TINGLING. ABLE TO MOVE ALL EXTREMITIES. WEAKNESS NOTED IN BUE/SHOULDERS. PATIENT COMPLAINS OF SHOULDER SORENESS THIS AM UPON WAKING. ABLE TO HELP TURN IN BED. MEDICAL STATUS NO TELE. DENIES CHEST PAIN/PRESSURE/PALPIATIONS. BP STABLE. PPP. ON ROOM AIR SATING ABOVE 95%. LUNGS SOUNDING CLEAR AND DIM IN BASES. DENIES COUGH/SOB. DENIES ABDOMINAL PAIN/NAUSEA. NEEDING FEEDING ASSISTANCE. SEE SPEECH THERAPY ORDERS. SCHEDULED MOUTH WASH FOR SORE ON TONGUE. ATTENDS IN PLACE. NATION CATH DRAINING CLEAR/YELLOW URINE, CATH CARE COMPLETED THIS AM WITH MORNING BED BATH. BOWEL TONES PRESENT. SKIN OVERALL PALE AND WARM. SEE PAPER CHART FOR PICTURES OF ALL WOUNDS. VERY LARGE STAGE 4 PRESSURE ULCER TO COCCYX, I&D DONE YESTERDAY. TRAIN EXAMINER IN TO DRESS ALL WOUNDS. OTHER WOUNDS INCLUDE UPPER RIGHT BACK, POSTERIOR SCALP, AND BILATERAL HEELS. HEEL FOAM IN PLACE. IDODINE PLACED ON SCALP PER WOUND RN. PATIENT COMPLAINS OF PAIN POST WOUND DRESSING CHANGES. MEDICATED PER EMAR WITH GOOD RELIEF. Q2 TURNING WITH SIDELYING TO KEEP PRESSURE OFF BOTTOM. DIETRAY CONSULT PLACED BY WOUND RN WELL REQUEST FOR AIR BED. PATIENT IN MEETING AT THIS TIME WITH SOCIAL CARE WORKER, PALLIATIVE CARE AND MEDICAL LIAISON.
--- NOTE | 2023-06-24 15:38 | NUR ---
PATIENT NORMALLY TAKES PO GABAPENTIN AT HOME. THIS RN PLACED CALL TO DR. OFRBES. NEW ORDERS FOR HOME DOSE GABAPENTIN TO START TONIGHT. ORDERS IN PLACE. THIS RN ALSO PROVIDED UPDATE TO DR. FORBES REGARDING PALLIATIVE CARE/AQUATICS SPECIALIST AND WOUND CARE VISITS.
[2023-06-24 16:07] VITALS: BP 129/54
--- NOTE | 2023-06-24 16:38 | NUR ---
Pt seen by Pt monitored part of the session to see her abilities and response. Pt then had an appointment with [facility] for services. Was able to monitor and assess her some of her cognative abilities. Pt was clear and able to answer most questions. She would state her memory not as good as it used to be and she would drift off a littile due to great fatigue. Interpeter help with pain and symptom assessment and therputic visit. We were also able to fit her with some temporary reading glasses. we also got some pointing boards and and a daily orientation board. Will get her some clothing from the pantry. Brought her some crocheting supplies to occupy her mind. Review of her medication she was on gabipentine requested we start at bedtime. pt having a mild headache and pain in her shoulders. She is expressing fear and stress. Review of her wound with wound care nurse concerns this wound will push her to hospice care. Will review with physicians and form reasonable plan of care. pt kps score is 40% if her albumin drops more or other complications be lower. Will discuss code staus with pt.
--- NOTE | 2023-06-24 18:32 | NUR ---
SHIFT SUMMARY: NO ACUTE CHANGES, SEE PREVIOUS NOTES. PATIENT REMAINS ALERT AND ORIENTED. ON ROOM AIR. NO TELE. Q2 TURNING AND NEEDED. EATING WNL, WITH FEEDING ASSISTANCE. DENIES PAIN. USING NOTEPAD AND BOARDS TO COMMUNICATE. PATIENT RESTING IN BED AT THIS TIME, DENIES NEEDS. CALL LIGHT IN REACH.
[2023-06-24 20:23] VITALS: BP 131/110
[2023-06-25 05:27] VITALS: BP 145/74
[2023-06-25 06:41] LABS: Hematocrit 31.3 % (33.0-51.0); Hemoglobin 10.5 g/dL (11.5-16.0); Mean Corpuscular HGB 28.5 pg (26.0-34.0); Mean Corpuscular HGB Conc 33.5 g/dL (31.5-36.5); Mean Corpuscular Volume 85 fL (80-100); RDW Coefficient Variation 13.6 % (11.7-14.2); Red Blood Cell Count 3.68 M/mm3 (3.80-5.20); White Blood Cell Count 11.45 K/mm3 (4.00-11.30)
[2023-06-25 07:02] LABS: Magnesium, Blood 1.7 mg/dL (1.6-2.4)
[2023-06-25 07:03] LABS: Albumin, Blood 1.9 g/dL (3.4-5.0); Anion Gap 3 mmol/L (6-16); Blood Urea Nitrogen 18 mg/dL (8-24); Bun/Creatinine Ratio 22.7 (12.0-20.0); CO2, Blood 27 mmol/L (21-32); Calcium, Blood 8.8 mg/dL (8.5-10.1); Chloride, Blood 117 mmol/L (98-108); Creatinine, Blood 0.79 mg/dL (0.40-1.00); Glomerular Filtration Rate 77 (60-); Glucose, Blood 94 mg/dL (70-99); Phosphorus, Blood 2.6 mg/dL (2.5-4.9); Potassium, Blood 4.5 mmol/L (3.5-5.5); Sodium, Blood 147 mmol/L (136-145)
[2023-06-25 07:09] LABS: BASOPHILS ABSOLUTE MAN 0.22 K/mm3 (0.00-0.23); BASOPHILS PERCENT MAN 2 % (0-2); EOSINOPHILS ABSOLUTE MAN 0.57 K/mm3 (0.00-0.68); EOSINOPHILS PERCENT MAN 5 % (0-6); LYMPHOCYTES ABSOLUTE MAN 1.03 K/mm3 (0.84-5.20); LYMPHOCYTES PERCENT MAN 9 % (21-46); MONOCYTES ABSOLUTE MAN 0.68 K/mm3 (0.16-1.47); MONOCYTES PERCENT MAN 6 % (4-13); MYELOCYTE ABSOLUTE MAN 0.22 K/mm3 (0.00-0.00); MYELOCYTE PERCENT MAN 2 % (0-0); SEG NEUTROPHILS PERCENT MAN 76 % (41-73); TOTAL CELLS COUNTED 100
[2023-06-25 07:14] LABS: Mean Platelet Volume 10.8 fL (9.1-12.4); Platelet Count 269 K/mm3 (150-400)
[2023-06-25 09:08] VITALS: BP 136/74
--- NOTE | 2023-06-25 13:28 | NUR ---
Met Mahi with a professional network development coordinator at bedside. We discussed POLST, and pt communicated she would want DNR status, but with full treatment. The pt indicated she would like to "live on", but not if she is "already gone". Pt is pleasant, cooperative with care. Palliative care will remain involved.
--- NOTE | 2023-06-25 15:57 | NUR ---
WOUND CARE COCCYX WOUND DRESSED PER ORDER. WOUND BASE WITH CONSIDERABLE YELLOW/BROWN SLOUGH. WILL CONTINUE WITH DAKINS WET TO DRY WOUND IS NOT APPROPRIATE FOR WOUND VAC. PT NOW HAS AIR FLUIDIZED BED. WILL CONTINUE TO ENCOURAGE OFFLOADING WOUND. PT PAINFUL AND REQUESTED PAIN MEDICATION AFTER CHANGE. RUBBER TIRE CURER WILL FOLLOW
[2023-06-25 16:15] VITALS: BP 130/68
--- NOTE | 2023-06-25 17:24 | NUR ---
NO ACUTE EVENTS T/O THE SHIFT. PT ABLE TO COMMUNICATE VIA CAR SEAT MAKER AT BEDSIDE THIS AM AND ABLE TO READ WRITTEN COMMUNICATION FROM THIS RN. WOUND DRESSING TO SACRUM CHANGED BY NAIL EXPERT LAW. FORM WORKER IN ROOM THIS AM AND BACK THIS AFTERNOON TO FACILITATE COMMUNICATION. PT STATES SHE IS TIRED. PALLIATIVE CARE ON BOARD, CODE STATUS CHANGED TO LIMITED, INTUBATION ONLY. PT ABLE TO FEED HERSELF SOMEWHAT, BUT STILL NEEDS FEEDING ASSISTANCE. TAPE SEWING MACHINE OPERATOR OVI IN ROOM TO SPEAK WITH PT ABOUT THE NUTRITIONAL REQUIREMENTS SHE WILL NEED FOR WOUND HEALING. STAFF TO ENCOURGE AND ASSIST PT WITH EATING. NATION CATHETER DRAINING CLEAR YELLOW URINE, TURN Q 2, AIR BED D/T WOUNDS. FREQUENT ROUNDING PT IS NONVERBAL. PT TRANSFERRED TO ROOM 346 WITH ALL HER BELONGINGS. REPORT GIVEN TO RECEIVING RN.
--- NOTE | 2023-06-25 18:42 | NUR ---
TRANSFER MS AGUILA WAS TRANSFERED INTO THE MEDICAL UNIT AT 1740HRS. TRANSFERED ON A SPECIALTY AIRFLOW BED. SHE ATE MOST OF HER SUPPER, AND SWALLOWED HER MED WHOLE IN APPPLE SAUCE, DRANK SOME WATER USING A SPOON. TURNED AND REPOSITIONED. INCONTINENT OF SOFT UNFORMED STOOL. NATION TO BEDSIDE DRAINAGE, URINE PALE YELLOW AND CLEAR LOOKING. BED LOW, CALL LIGHT IN REACH.
[2023-06-25 20:28] VITALS: BP 136/68
[2023-06-26 05:33] LABS: Albumin, Blood 1.8 g/dL (3.4-5.0); Anion Gap 4 mmol/L (6-16); Blood Urea Nitrogen 24 mg/dL (8-24); Bun/Creatinine Ratio 33.1 (12.0-20.0); CO2, Blood 27 mmol/L (21-32); Calcium, Blood 8.6 mg/dL (8.5-10.1); Chloride, Blood 113 mmol/L (98-108); Creatinine, Blood 0.73 mg/dL (0.40-1.00); Glomerular Filtration Rate 84 (60-); Glucose, Blood 100 mg/dL (70-99); Magnesium, Blood 1.6 mg/dL (1.6-2.4); Phosphorus, Blood 2.4 mg/dL (2.5-4.9); Potassium, Blood 4.3 mmol/L (3.5-5.5); Sodium, Blood 144 mmol/L (136-145)
[2023-06-26 05:43] LABS: BASOPHILS ABSOLUTE AUTO 0.08 K/mm3 (0.00-0.23); BASOPHILS PERCENT AUTO 1 % (0-2); EOSINOPHILS ABSOLUTE AUTO 0.24 K/mm3 (0.00-0.68); EOSINOPHILS PERCENT AUTO 3 % (0-6); Hematocrit 30.6 % (33.0-51.0); Hemoglobin 9.9 g/dL (11.5-16.0); IMMATURE GRAN ABSOLUTE AUTO 0.46 K/mm3 (0.00-0.10); IMMATURE GRAN PERCENT AUTO 5 % (0-1); LYMPHOCYTES ABSOLUTE AUTO 1.86 K/mm3 (0.84-5.20); LYMPHOCYTES PERCENT AUTO 20 % (21-46); MONOCYTES ABSOLUTE AUTO 0.85 K/mm3 (0.16-1.47); MONOCYTES PERCENT AUTO 9 % (4-13); Mean Corpuscular HGB 28.4 pg (26.0-34.0); Mean Corpuscular HGB Conc 32.4 g/dL (31.5-36.5); Mean Corpuscular Volume 88 fL (80-100); Mean Platelet Volume 9.9 fL (9.1-12.4); NEUTROPHILS ABSOLUTE AUTO 5.73 K/mm3 (1.96-9.15); NEUTROPHILS PERCENT AUTO 62 % (41-73); Platelet Count 305 K/mm3 (150-400); RDW Coefficient Variation 13.6 % (11.7-14.2); RDW Standard Deviation 43.2 fL (35.1-46.3); Red Blood Cell Count 3.48 M/mm3 (3.80-5.20); White Blood Cell Count 9.22 K/mm3 (4.00-11.30)
[2023-06-26 05:58] LABS: International Normalized Ratio 1.14; Prothrombin Time Results 11.9 Sec (9.7-11.5)
[2023-06-26 06:01] VITALS: BP 145/58
--- NOTE | 2023-06-26 06:41 | NUR ---
PT EDUCATED ON [facility] FIRE SAFETY EXPLOSIVES/NON SMOKING SAFETY POLICY AND VERBALIZED UNDERSTANDING.
--- NOTE | 2023-06-26 06:47 | NUR ---
PT A/O X 3-4, BUT DEAF PT ABLE TO COMMUINCATE NEEDS THROUGH WHITE BOARD AT BEDSIDE. NO ACUTE CHANGES TO REPORT. PT HAS PICC IN OBEY THAT DOES NOT DRAW WELL, PLACEMENT OF PICC NEEDS REEVALUATION. PT HAS NATION IN PLACE DRAINING TO GRAVITY. PT IS CURRENTLY RESTING WITH BED ALARM ON, BED IN LOWEST POSITION, AND CALL LIGHT WITHIN REACH.
[2023-06-26 07:56] VITALS: BP 144/58
[2023-06-26 16:39] VITALS: BP 157/70
--- NOTE | 2023-06-26 17:03 | NUR ---
SHIFT SUMMARY PT AXO TO SELF, PLACE AND FOLLOWING DIRECTIONS THOUGH PT HEARING IMPAIRED. SENIOR DOT NET DEVELOPER UTILIZED FOR MORNING ASSESSMENT, OT, PT AND ST. DENTAL HYGIENIST CARE, SEE ASSESSMENT. ALL DRESSINGS CHANGED THIS SHIFT. WOUND CARE NURSE WAS NOT AVAILABLE THIS SHIFT. PT MEDICATED FOR PAIN ONCE THIS SHIFT. IV PATENT AND INFUSING AT TKO. PT DENIES SOB, NV. BED IN LOW POSITION, CALL LIGHT WITHIN REACH.
[2023-06-26 19:45] VITALS: BP 128/74
[2023-06-27 05:17] LABS: Hematocrit 27.8 % (33.0-51.0); Hemoglobin 9.1 g/dL (11.5-16.0)
[2023-06-27 05:36] LABS: International Normalized Ratio 1.72; Prothrombin Time Results 17.5 Sec (9.7-11.5)
[2023-06-27 05:46] LABS: Albumin, Blood 1.8 g/dL (3.4-5.0); Anion Gap 5 mmol/L (6-16); Blood Urea Nitrogen 24 mg/dL (8-24); Bun/Creatinine Ratio 32.6 (12.0-20.0); CO2, Blood 26 mmol/L (21-32); Calcium, Blood 8.8 mg/dL (8.5-10.1); Chloride, Blood 109 mmol/L (98-108); Creatinine, Blood 0.74 mg/dL (0.40-1.00); Glomerular Filtration Rate 83 (60-); Glucose, Blood 104 mg/dL (70-99); Magnesium, Blood 1.7 mg/dL (1.6-2.4); Phosphorus, Blood 2.9 mg/dL (2.5-4.9); Potassium, Blood 4.1 mmol/L (3.5-5.5); Sodium, Blood 140 mmol/L (136-145)
[2023-06-27 05:55] VITALS: BP 147/63
--- NOTE | 2023-06-27 06:28 | NUR ---
RADHA SLEPT WELL BETWEEN POSITION CHANGES LAST NIGHT. SHE INSISTED THAT SHE DID NOT REQUIRE ANY PAIN PRE MEDICATION PRIOR TO REPOSITIONING. DRESSING WET WITH SEROUS FLUID DURING LAST REPOSITIONING AND WAS REPLACED. PATIENT TOLERATED WELL. ALL OTHER DRESSINGS REMAINED INTACT
[2023-06-27 07:20] VITALS: BP 129/68
[2023-06-27 12:35] LABS: Influenza A, PCR NEGATIVE (NEGATIVE); Influenza B, PCR NEGATIVE (NEGATIVE); Resp Syncytial Virus, PCR NEGATIVE (NEGATIVE); SARS-Cov-2 (COVID-19) PCR, MMC NEGATIVE (NEGATIVE)
--- NOTE | 2023-06-27 15:32 | NUR ---
NOTES/DISCHARGE SUMMARY: PATIENT ALERT, AWAKE AND ORIENTED TO SELF, PLACED AND STAFF. PATIENT IS DEAF c SLE IN ROOM FOR ASSESSMENT AND WHEN PROVIDING CARE TO PATIENT. RECEIVED IV ABX. WOUND DRESSING CHANGED TO COCCYX, BILATERAL HEELS WAS DONE TODAY BY LAW, COMPUTER DISCOVERY TEACHER. REPOSITIONED, ORAL CARE DONE. NATION CATH, PATENT DRAINING CLEAR YELLOW URINE TO GRAVITY. RECEIVED SCHEDULED MEDS PER EMAR. ON ENTERIC CONTACT ISOLATION FOR POSITIVE CDIFF TO WOUND. DENIES CP/PRESSURE, SOB AND N/V. VITAL SIGNS REVIEWED. PICC LINE TO OBEY SALINE LOCKED. PATIENT DISCHARGE TO [facility]. DISCHARGE INSTRUCTION PACKET WAS FAXED TO [facility] BY UX DESIGNER AND GIVEN TO PATIENT. PATIENT DISCHARGE c PICC LINE FOR CONTINUATION OF IV ABX TX AND NATION D/T LARGE STAGE 4 COCCYX WOUND. REPORT GIVEN TO [facility] STAFF, NAME KAYLA AT AROUND 1440. ALL PATIENT PERSONAL BELONGINGS WERE SENT c THE PATIENT. PATIENT LEFT THE ROOM AT AROUND 1455 AND WAS TRANSPORTED VIA GURNEY.
== END 2023-06-27 14:59 | DRG 853 ==
LOC: ICUE 23:24 → PCU 06-18 01:24 → ICUE 06-18 01:37 → PCU 06-21 03:16 → MEDS 06-25 17:29 → ENPENDDIS 06-27 12:36 → MEDS 06-27 14:59
PROVIDERS: Family Medicine; Internal Medicine; Internal Medicine Critical Care Medicine; Internal Medicine Nephrology; Surgery; ADMIT Student in an Organized Health Care Education/Training Program
PROC: 0T9B70Z Drainage of Bladder with Drainage Device, Via Natural or Artificial Opening (ICD-10-PCS; 2023-06-18)
PROC: 3E033XZ Introduction of Vasopressor into Peripheral Vein, Percutaneous Approach (ICD-10-PCS; 2023-06-18)
PROC: 02HV33Z Insertion of Infusion Device into Superior Vena Cava, Percutaneous Approach (ICD-10-PCS; 2023-06-18)
PROC: 3E03329 Introduction of Other Anti-infective into Peripheral Vein, Percutaneous Approach (ICD-10-PCS; 2023-06-20)
PROC: 0QB10ZZ Excision of Sacrum, Open Approach (ICD-10-PCS; principal; 2023-06-23 13:00)
DX: A41.51 Sepsis due to Escherichia coli [E. coli] (principal); G92.8 Other toxic encephalopathy; L89.154 Pressure ulcer of sacral region, stage 4; I21.A1 Myocardial infarction type 2; R65.21 Severe sepsis with septic shock; N17.9 Acute kidney failure, unspecified; E87.0 Hyperosmolality and hypernatremia; E87.20 Acidosis, unspecified; J98.11 Atelectasis; S36.119A Unspecified injury of liver, initial encounter; B37.89 Other sites of candidiasis; I96 Gangrene, not elsewhere classified; E86.9 Volume depletion, unspecified; I12.9 Hypertensive chronic kidney disease with stage 1 through stage 4 chronic kidney disease, or unspecified chronic kidney disease; D63.1 Anemia in chronic kidney disease; L89.626 Pressure-induced deep tissue damage of left heel; L89.616 Pressure-induced deep tissue damage of right heel; S20.412A Abrasion of left back wall of thorax, initial encounter; L89.116 Pressure-induced deep tissue damage of right upper back; E86.0 Dehydration; N18.30 Chronic kidney disease, stage 3 unspecified; S20.411A Abrasion of right back wall of thorax, initial encounter; E83.39 Other disorders of phosphorus metabolism; G89.29 Other chronic pain; E78.5 Hyperlipidemia, unspecified; E83.41 Hypermagnesemia; E88.09 Other disorders of plasma-protein metabolism, not elsewhere classified; E79.0 Hyperuricemia without signs of inflammatory arthritis and tophaceous disease; M50.30 Other cervical disc degeneration, unspecified cervical region; E07.9 Disorder of thyroid, unspecified; R54 Age-related physical debility; K14.0 Glossitis; M19.012 Primary osteoarthritis, left shoulder; E87.6 Hypokalemia; K21.9 Gastro-esophageal reflux disease without esophagitis; T79.6XXA Traumatic ischemia of muscle, initial encounter; E87.5 Hyperkalemia; I48.0 Paroxysmal atrial fibrillation; H91.8X3 Other specified hearing loss, bilateral; Z91.048 Other nonmedicinal substance allergy status; X58.XXXA Exposure to other specified factors, initial encounter; Z79.811 Long term (current) use of aromatase inhibitors; Z79.899 Other long term (current) drug therapy
CPT/HCPCS: 0241U; 36415; 36569; 70551; 73030; 76770; 80048; 80053; 80069; 80202; 81001; 81015; 82330; 82550; 82570; 82607; 82728; 82746; 82803; 82947; 83516; 83520; 83540; 83550; 83605; 83735; 83935; 84100; 84132; 84145; 84156; 84295; 84300; 84443; 84484; 84550; 85014; 85018; 85025; 85027; 85610; 85730; 86037; 86038; 86334; 86335; 87040; 87070; 87075; 87076; 87077; 87086; 87186; 87205; 92526; 92610; 93005; 93010; 93306; 94760; 94762; 97110; 97162; 97166; 97530; 97535; A9270; C1751; C9113; J0692; J0881; J1100; J1644; J2185; J2371; J2405; J2704; J3010; J3370; J3480; J7042; J7050; J7060; J7070; J7120; J7131

== ENCOUNTER 2023-08-01 12:44 | Inpatient (IN) | payer OTHER ==
[~2023-08-01] VITALS: Ht 160 cm; Wt 68.9 kg
[~2023-08-01 12:44] MED LIST: ACET500 PO; ALMACONE SUSPE355 ML PO; ASCO500 PO; ATOR10 PO; GABA100 PO; LISI20 PO; METO25 PO; OMEP20ER PO; ONDA4ODT MM; THERA-D2000 UNIT PO; TIZA4 PO; Voltaren100 GM TOP; WARF5 PO; XOPENEX HFA15 GM INH
[2023-08-01 14:36] LABS: Albumin, Blood 1.5 g/dL (3.4-5.0); Albumin/Globulin Ratio 0.3 (0.8-1.8); Bilirubin, Total 0.6 mg/dL (0.1-1.0); Bun/Creatinine Ratio 60.3 (12.0-20.0); Calcium, Blood 10.6 mg/dL (8.5-10.1); Creatinine, Blood 0.78 mg/dL (0.40-1.00); Globulin, Blood 5.7 g/dL (2.2-4.0); Total Protein, Blood 7.2 g/dL (6.4-8.2)
[2023-08-01 14:49] LABS: Hematocrit 30.7 % (33.0-51.0); Hemoglobin 9.2 g/dL (11.5-16.0); Mean Corpuscular HGB 26.3 pg (26.0-34.0); Mean Corpuscular Volume 88 fL (80-100); Mean Platelet Volume 10.2 fL (9.1-12.4); NRBC ABSOLUTE 0.14 K/mm3 (0.00-0.02); NRBC Auto 1.1 /100 WBC (0.0-0.2); Platelet Count 543 K/mm3 (150-400); RDW Coefficient Variation 15.2 % (11.7-14.2); RDW Standard Deviation 48.4 fL (35.1-46.3); White Blood Cell Count 12.36 K/mm3 (4.00-11.30)
[2023-08-01 15:46] LABS: Source, Urine Foley catheter
[2023-08-01 15:48] LABS: International Normalized Ratio 7.58
[2023-08-01 15:49] LABS: Appearance, Urine Cloudy (Clear); Bilirubin, Urine Neg (Neg); Blood, Urine 4+ (Neg); Color, Urine Yellow (P-Yellow); Glucose Qualitative, Urine Neg (Neg); Ketones, Urine Neg (Neg); Leukocyte Esterase, Urine 3+ (Neg); Nitrite, Urine Neg (Neg); Protein, Urine 2+ (Neg); Specific Gravity, Urine 1.015 (1.003-1.022); Urobilinogen, Urine 2+ (Normal)
[2023-08-01 16:07] LABS: Bacteria Many /hpf; Squamous Epithelial Cells Rare /hpf (Few); Transitional Epithelial Cells Few /hpf (0-Rare); White Blood Cells, Urine TNTC /hpf (0-5)
[2023-08-01 17:08] LABS: BAND PERCENT MAN 45 % (0-8); BASOPHILS PERCENT MAN 0 % (0-2); EOSINOPHILS PERCENT MAN 0 % (0-6); LYMPHOCYTES ABSOLUTE MAN 1.11 K/mm3 (0.84-5.20); LYMPHOCYTES PERCENT MAN 9 % (21-46); MONOCYTES ABSOLUTE MAN 0.61 K/mm3 (0.16-1.47); MONOCYTES PERCENT MAN 5 % (4-13); MYELOCYTE ABSOLUTE MAN 0.24 K/mm3 (0.00-0.00); MYELOCYTE PERCENT MAN 2 % (0-0); NEUTROPHILS ABSOLUTE MAN 10.38 K/mm3 (1.96-9.15); SEG NEUTROPHILS PERCENT MAN 39 % (41-73); TOTAL CELLS COUNTED 100
[2023-08-01 17:44] LABS: Albumin, Blood 1.3 g/dL (3.4-5.0); Anion Gap 6 mmol/L (6-16); Blood Urea Nitrogen 41 mg/dL (8-24); Bun/Creatinine Ratio 60.2 (12.0-20.0); CO2, Blood 24 mmol/L (21-32); Calcium, Blood 9.8 mg/dL (8.5-10.1); Chloride, Blood 120 mmol/L (98-108); Creatinine, Blood 0.68 mg/dL (0.40-1.00); Glomerular Filtration Rate 89 (60-); Glucose, Blood 119 mg/dL (70-99); Phosphorus, Blood 3.6 mg/dL (2.5-4.9); Potassium, Blood 4.4 mmol/L (3.5-5.5); Sodium, Blood 150 mmol/L (136-145)
[2023-08-01 18:05] VITALS: BP 83/36
[2023-08-01 18:09] VITALS: BP 76/33
[2023-08-01 18:15] VITALS: BP 97/48
[2023-08-01 18:30] VITALS: BP 81/68
[2023-08-01 18:45] VITALS: BP 110/58
--- NOTE | 2023-08-01 19:00 | NUR ---
ASSUMPTION OF CARE BEDSIDE REPORT RECIEVED FROM DAY SHIFT RN. DAY SHIFT TIRE DUSTER PLACING POWERGLIDE DURING REPORT. PATIENT RESPONSIVE TO PAINFUL STIMULI. WILL OPEN EYES BUT OTHERWISE NONRESPONSIVE. Hx BILAT DEAFNESS. WOUNDS TO COCCYX AND MID SHOULDERS. DARK, DRY, PATCHY SPOTS IN MOUTH. UNABLE TO OBTAIN PHOTO OF MOUTH. NATION IN PLACE DRAINING DARK YELLOW URINE, ATTENDS IN PLACE. BED IN LOW POSITION, CALL LIGHT IN REACH. WILL CONTINUE TO MONITOR.
--- NOTE | 2023-08-01 19:25 | NUR ---
arrival to pcu/shift summary patient arrived to pcu via ed gurney. patient transfered to pcu bed via slider sheet. patient is responsive to painful stimuli. patient has a large ulcer on her bottom and back. ulcers on her heels. photos are in chart. patient has skin breakdown on upper back above ulcer on bottom. patient has skin breakdown on upper back above ulcers, appeares to be from bandages being changed. patient wounds all cleaned and dressing changes. patient in pain, on faces scale at an 8. md shin called about patient pain, rectal bleeding and fecal impaction, and soft blood pressure. bolus of fluid going. vitamin k going. and pain medications ordered per md. see vital signs section. admit assessment not complete. see polst on file, paper copy from facility to see patient code status. report givent to neelima mendoza.
[2023-08-01 20:20] VITALS: BP 118/59
[2023-08-01 21:35] LABS: Hematocrit 26.6 % (33.0-51.0)
[2023-08-01 21:56] LABS: Bun/Creatinine Ratio 58.2 (12.0-20.0); Calcium, Blood 9.3 mg/dL (8.5-10.1); Creatinine, Blood 0.64 mg/dL (0.40-1.00); Potassium, Blood 4.2 mmol/L (3.5-5.5)
[2023-08-02] VITALS (7 sets, daily range): BP systolic 102–134; BP diastolic 60–63
[2023-08-02 04:09] LABS: Hematocrit 24.1 % (33.0-51.0); Hemoglobin 7.3 g/dL (11.5-16.0); Mean Corpuscular HGB Conc 30.3 g/dL (31.5-36.5); Mean Corpuscular Volume 89 fL (80-100); Mean Platelet Volume 9.8 fL (9.1-12.4); Platelet Count 423 K/mm3 (150-400); RDW Coefficient Variation 15.2 % (11.7-14.2); RDW Standard Deviation 48.7 fL (35.1-46.3); White Blood Cell Count 10.04 K/mm3 (4.00-11.30)
[2023-08-02 04:24] LABS: International Normalized Ratio 1.48; Prothrombin Time Results 15.2 Sec (9.7-11.5)
[2023-08-02 04:29] LABS: Albumin, Blood 1.2 g/dL (3.4-5.0); Albumin/Globulin Ratio 0.3 (0.8-1.8); Bilirubin, Total 0.5 mg/dL (0.1-1.0); Bun/Creatinine Ratio 57.1 (12.0-20.0); Calcium, Blood 8.8 mg/dL (8.5-10.1); Creatinine, Blood 0.53 mg/dL (0.40-1.00); Globulin, Blood 4.7 g/dL (2.2-4.0); Magnesium, Blood 2.6 mg/dL (1.6-2.4); Potassium, Blood 3.4 mmol/L (3.5-5.5); Total Protein, Blood 5.9 g/dL (6.4-8.2)
--- NOTE | 2023-08-02 05:40 | NUR ---
SHIFT SUMMARY PATIENT RESPONSIVE TO PAINFUL STIMULI BY GRIMACING AND MOANING OUT. PATIENT DEAF. VITALS STABLE DURING THE NIGHT. TELE READING SR 80s, PATIENT ON RA WITH SPO2 >93%. MEDICATED PER EMAR FOR PAIN PATIENT WILL MOAN AND GRIMACE DURING TURNS AND ATTENDS CHANGES. PATIENT IS HAVING RED TINGED LIQUID OUT OF RECTUM. NATION IN PLACE DRAINING DARK YELLOW URINE TO GRAVITY. SIGNIFICANT WOUNDS TO COCCYX AND MID SHOULDERS. WOUNDS PACKED WITH KERLEX AND COVERED WITH ABD PAD, WEEPING AND REQUIRING MULTIPLE CHANGES. FREQUENTLY TURNED TO OFFLOAD PRESSURE. NO OTHER CHANGES, WILL REPORT TO DAY SHIFT RN.
--- NOTE | 2023-08-02 10:38 | NUR ---
message to rn field case manager-aps this rn called ailin rn field case manager per papers from [facility]. this rn left a message for ailin stating that we have one of her clients she takes care of at the hospital and to please give us a call, and left the pcu call back number. informed smelter charger, and going to continue to get in contact with patients rn field case manager.
--- NOTE | 2023-08-02 12:10 | NUR ---
spoke with patients sister regarding wishes this rn spoke to patient sister, juaquin, with an coater associate. juaquin expressed that her sister wouldn't want any interventions and would want to made comfortable. she stated that her sister would want to be cremanted. patient sister mentioned that elvia has been estranged from her childern and only keeps in contact with her. md shin on the phone and spoke with the sister, juaquin, and confirmed that patient sister stated that the patient would just want to be made comfortable and to stop iv antibioitics. this rn called palliative care naif, who is going to call the sister to confirm and then contact the doctor to update.
[2023-08-02 15:52] LABS: Hematocrit 23.6 % (33.0-51.0); Hemoglobin 7.2 g/dL (11.5-16.0)
[2023-08-02 16:07] LABS: Bun/Creatinine Ratio 42.5 (12.0-20.0); Calcium, Blood 9.1 mg/dL (8.5-10.1); Creatinine, Blood 0.42 mg/dL (0.40-1.00); Potassium, Blood 3.5 mmol/L (3.5-5.5)
--- NOTE | 2023-08-02 17:21 | NUR ---
Mahi is a 78 year old deaf woman who was transferred to the hospital from [facility] on 08/01 with decreased responsiveness and hypoxia. She has a chronic stage IV sacral decubitus ulcer. This pt was previously living in a [facility], and after being transferred from [facility] in [place] to [facility], she was hospitalized from 06/18 to 06/27/23 for septic shock secondary to the then infected decub. After treatment, she was transferred to for ongoing wound care and therapy. However, her health appears to be declining, and she winces in pain with any movement. She is not currently opening her eyes or attempting to engage with staff. I spoke to Yenni today, a woman who claims to be pt's sister, and she request pt be placed on comfort care, stating this is what the pt would want. I also spoke to another woman named Maria D Ashley who identified herself as a "good friend" of the pt's. She tells me the pt is estranged from her children, and that she is in agreement with pt's sister Yenni on the subject of comfort care. They state they have seen the pt at [facility] and are planning to come see her here at the hospital as well. However, there are questions on guardianship, and concerns she may have an unknown michi or involvement with a state agency for guardianship. This remains unknown to us due to the weekend and most agencies being closed. Plan to continue with pain control, optimization of patient, and will reach on Friday.
--- NOTE | 2023-08-02 17:38 | NUR ---
shift summary this rn assumed care at 0700. vital signs stable tele sr 80s. patient has moaned and groaned throughout this shift. patient cries out whenever being repositioned or moving patient. patient has been medicated per emar. patient based off of the faces scale has ranged 6-8 throughout the shift. see shift assessment for further detials. naif, with palliative care, has been in contact with this rn, md shin, and patient friend. see palliative care notes for further detials. plan of care up to date. no acute changes.
--- NOTE | 2023-08-02 17:55 | NUR ---
Fentanyl prn dose increased to every 2 hrs prn as pt's pain was not well controlled with any movement.
--- NOTE | 2023-08-02 18:00 | NUR ---
ethic consult an ethic consult has been placed for patient to have a decision maker due to mentation status.
--- NOTE | 2023-08-02 18:03 | NUR ---
ethic consult an ethic consult has been put in on the patient.
[2023-08-03 02:42] VITALS: BP 108/54
[2023-08-03 05:32] LABS: Hematocrit 24.3 % (33.0-51.0); Hemoglobin 7.3 g/dL (11.5-16.0); Mean Corpuscular HGB 26.4 pg (26.0-34.0); Mean Corpuscular Volume 88 fL (80-100); NRBC Auto 1.1 /100 WBC (0.0-0.2); Platelet Count 419 K/mm3 (150-400); RDW Coefficient Variation 14.9 % (11.7-14.2); RDW Standard Deviation 47.8 fL (35.1-46.3); Red Blood Cell Count 2.77 M/mm3 (3.80-5.20)
[2023-08-03 05:50] LABS: International Normalized Ratio 1.09; Prothrombin Time Results 11.4 Sec (9.7-11.5)
[2023-08-03 06:01] LABS: Magnesium, Blood 2.2 mg/dL (1.6-2.4)
[2023-08-03 06:04] LABS: Albumin, Blood 1.2 g/dL (3.4-5.0); Albumin/Globulin Ratio 0.3 (0.8-1.8); Bilirubin, Total 0.3 mg/dL (0.1-1.0); Bun/Creatinine Ratio 24.4 (12.0-20.0); Calcium, Blood 9.1 mg/dL (8.5-10.1); Creatinine, Blood 0.41 mg/dL (0.40-1.00); Globulin, Blood 4.4 g/dL (2.2-4.0); Phosphorus, Blood 1.8 mg/dL (2.5-4.9); Potassium, Blood 3.3 mmol/L (3.5-5.5); Total Protein, Blood 5.6 g/dL (6.4-8.2)
--- NOTE | 2023-08-03 06:08 | NUR ---
SHIFT SUMMARY PATIENT RESPONSIVE TO PAIN ONLY. PATIENT MOANING OUT DURING TURNS AND AT RANDOM TIMES DURING THE NIGHT. PATIENT DEAF AND BARELY OPENING EYES DURING TURNS/CHANGES OR WHEN STAFF IN ROOM. VITALS STABLE, PATIENT ON RA WITH SPO2 >90%. MEDICATED PER EMAR FOR PAIN USING FLACC SCALE. NATION IN PLACE DRAINING DARK YELLOW URINE TO GRAVITY. WOUND CARE COMPLETED DRESSINGS WOULD GET SATURATED WOUNDS ARE WEEPING SEROSANGUINEOUS FLUID. NO OTHER CHANGES DURING THE NIGHT, WILL REPORT TO DAY SHIFT RN.
[2023-08-03 07:36] VITALS: BP 123/56
[2023-08-03 11:33] VITALS: BP 120/61
--- NOTE | 2023-08-03 13:40 | NUR ---
WOUND CARE/AM NOTE: ASSUMED CARE OF PT THIS AM AT APPROX 0715 AFTER RECEIVING REPORT. PT LETHARGIC, ALERT TO TOUCH/CARE/REPOSITIONING, WILL MOAN BUT NOT FORMING WORDS AND NOT ATTEMPTING TO INTERACT WITH STAFF DESPITE ATTEMPTS WITH COMMUNICATION BOARD. PT MAINTAINS O2 SATS >95% ON RA. OCCASIONAL CONGESTED COUGH HAS BEEN NOTED T/OUT THE AM. SR ON MONITOR, RATE IN 70s. INDWELLING NATION CATHETER PATENT, DRAINING YELLOW COLORED URINE TO GRAVITY. ORAL CARE AND REPOSITIONING PERFORMED PER PROTOCOL. WOUND CARE HAS BEEN COMPLETED AT THIS TIME. BOTH WOUNDS ON PT's BACK HAVE BEEN UNPACKED, CLEANED AND REDRESSED W/WET TO DRY DRESSINGS IN PLACE. PT REPOSITIONED ONTO HER LEFT SIDE. WILL CONTINUE TO MONITOR AND TREAT ACCORDINGLY.
--- NOTE | 2023-08-03 15:09 | NUR ---
The pt remains in PCU on room air. She isn't opening her eyes or attempting to engage in any communication, but she is also deaf. The bedside RN reports the pt moans and grimaces with repositioning. However, prn fentanyl appears to be effective at this time. Will continue to advocate for this patient, and follow up tomorrow with ethics.
[2023-08-03 15:24] VITALS: BP 131/67
--- NOTE | 2023-08-03 17:55 | NUR ---
SHIFT SUMMARY: NO ACUTE CHANGES FROM THIS AM's NOTE. PT SLEEPS OFTEN BUT DOES WAKE EASILY TO TOUCH. PT REPOSITIONED OFTEN, DOES SEEM TO REST MORE PEACEFULLY WHEN FULLY PLACED ON SIDE WITH NO/MINIMAL PRESSURE ON BACK/COCCYX. PT MEDICATED W/PRN PAIN MEDICATION PRIOR TO REPOSITIONING, PT WILL STILL MOAN/CRY OUT W/ CARE BUT IS EASILY CONSOLED. O2 SATS MAINTAINED >95% ON RA. BEDBATH COMPLETED THIS SHIFT. WILL CONTINUE TO MONITOR AND TREAT ACCORDINGLY UNTIL CHANGE OF SHIFT.
[2023-08-03 20:00] VITALS: BP 119/65
[2023-08-04 00:30] VITALS: BP 137/64
[2023-08-04 04:00] VITALS: BP 132/61
[2023-08-04 05:15] LABS: Hemoglobin 7.8 g/dL (11.5-16.0); Mean Corpuscular HGB 26.5 pg (26.0-34.0); Mean Corpuscular HGB Conc 31.2 g/dL (31.5-36.5); Mean Corpuscular Volume 85 fL (80-100); Mean Platelet Volume 9.6 fL (9.1-12.4); NRBC ABSOLUTE 0.04 K/mm3 (0.00-0.02); NRBC Auto 0.3 /100 WBC (0.0-0.2); Platelet Count 419 K/mm3 (150-400); RDW Coefficient Variation 14.9 % (11.7-14.2); RDW Standard Deviation 45.1 fL (35.1-46.3); Red Blood Cell Count 2.94 M/mm3 (3.80-5.20)
[2023-08-04 05:50] LABS: Albumin, Blood 1.2 g/dL (3.4-5.0); Anion Gap 5 mmol/L (6-16); Blood Urea Nitrogen 5 mg/dL (8-24); Bun/Creatinine Ratio 12.3 (12.0-20.0); CO2, Blood 24 mmol/L (21-32); Calcium, Blood 9.1 mg/dL (8.5-10.1); Chloride, Blood 108 mmol/L (98-108); Creatinine, Blood 0.41 mg/dL (0.40-1.00); Glomerular Filtration Rate 101 (60-); Glucose, Blood 109 mg/dL (70-99); Magnesium, Blood 1.9 mg/dL (1.6-2.4); Potassium, Blood 3.4 mmol/L (3.5-5.5); Sodium, Blood 137 mmol/L (136-145)
--- NOTE | 2023-08-04 06:24 | NUR ---
SHIFT SUMMARY PT LETHARGIC, OCCASSIONALLY OPENS EYES DURING CARE BUT DOES NOT RESPOND TO QUESTIONS OR STIMULI. VSS. PT REMAINS ON RA, SPO >95%, NO SOB OR DIFFICULTY BREATHING NOTED. PT DOES NOT APPEAR TO BE IN DISTRESS. NO ACUTE EVENTS OVERNIGHT. PT DOES GROAN DURING CARE, PAIN MEDICATION PER EMAR TO HELP WITH REPOSITIONING AND PAIN CONTROL. DRESSING C/D/I; CHANGED DURING DAYSHIFT PER REPORT. CATHETER IN PLACE AND DRAINING TO GRAVITY. NO BM THIS SHIFT. D5 INFUSING PER EMAR. CBG STABLE. ABX PER EMAR. ORAL CARE COMPLETED. CALL LIGHT IN REACH, WILL UPDATE ONCOMING RN
[2023-08-04 07:33] VITALS: BP 137/61
[2023-08-04 11:28] VITALS: BP 124/66
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
[2023-08-04 16:17] VITALS: BP 116/54
--- NOTE | 2023-08-04 18:53 | NUR ---
SHIFT SUMMARY: PT CONTINUES TO SLEEP OFTEN, ALERT TO TOUCH, MINIMAL ATTEMPTS TO INTERACT WITH STAFF, MOANING OR CRYING W/REPOSITIONING OR MOVING OF EXTREMITIES. THIS RN ATTEMPTED TO CLUSTER PT CARE, MEDICATING PT PRIOR TO REPOSITIONING/WOUND CARE. WOUND CARE AND DRESSING CHANGES PROVIDED PER ORDERS W/WET TO DRY DRESSINGS. O2 SATS MAINTAINED >95% ON RA. VS STABLE. INDWELLING NATION CATHETER PATENT, DRAINING YELLOW COLORED URINE TO GRAVITY. ORAL CARE COMPLETED PER PROTOCOL. PT CURRENTLY RESTING WITH EYES CLOSED, NADN. WILL CONTINUE TO MONITOR AND TREAT ACCORDINGLY UNTIL CHANGE OF SHIFT.
[2023-08-04 20:00] VITALS: BP 122/72
[2023-08-05] VITALS: BP 117/67
[2023-08-05 04:00] VITALS: BP 133/63
--- NOTE | 2023-08-05 05:42 | NUR ---
SHIFT SUMMARY PT ORIENTATION REMAINS THE SAME, PT LETHARGIC. OPENS EYES DURING CARE OR TO TOUCH, PT OCCASSIONALLY TRACKS BUT NOT RESPONDING TO QUESTIONS. VSS. REMAINS ON RA. NO ACUTE CHANGES OVERNIGHT. PT REPOSITIONED. ORAL CARE COMPLETED. PT HAD 2 BM'S; SOFT, UNFORMED RUNNY AND BROWN IN COLOR. SMALL - MEDIUM IN SIZE. NATION IN PLACE AND DRAINING TO GRAVITY; GOOD OUTPUT. D5 INFUSING PER EMAR. DRESSINGS CHANGED THIS SHIFT. WILL UPDATE ONCOMING RN
[2023-08-05 05:44] LABS: Hematocrit 25.8 % (33.0-51.0); Hemoglobin 8.2 g/dL (11.5-16.0); Mean Corpuscular HGB 26.8 pg (26.0-34.0); Mean Corpuscular HGB Conc 31.8 g/dL (31.5-36.5); Mean Corpuscular Volume 84 fL (80-100); Mean Platelet Volume 9.4 fL (9.1-12.4); Platelet Count 411 K/mm3 (150-400); RDW Coefficient Variation 15.8 % (11.7-14.2); RDW Standard Deviation 45.4 fL (35.1-46.3); Red Blood Cell Count 3.06 M/mm3 (3.80-5.20); White Blood Cell Count 12.42 K/mm3 (4.00-11.30)
[2023-08-05 06:08] LABS: Albumin, Blood 1.2 g/dL (3.4-5.0); Anion Gap 5 mmol/L (6-16); Blood Urea Nitrogen 4 mg/dL (8-24); Bun/Creatinine Ratio 10.8 (12.0-20.0); CO2, Blood 25 mmol/L (21-32); Calcium, Blood 8.8 mg/dL (8.5-10.1); Chloride, Blood 106 mmol/L (98-108); Creatinine, Blood 0.37 mg/dL (0.40-1.00); Glomerular Filtration Rate 103 (60-); Glucose, Blood 112 mg/dL (70-99); Magnesium, Blood 2.1 mg/dL (1.6-2.4); Phosphorus, Blood 2.1 mg/dL (2.5-4.9); Potassium, Blood 3.9 mmol/L (3.5-5.5); Sodium, Blood 136 mmol/L (136-145)
[2023-08-05 07:34] VITALS: BP 126/66
[2023-08-05 11:20] VITALS: BP 115/64
--- NOTE | 2023-08-05 11:23 | NUR ---
Patient continues to sleep throughout encounters. Patient responds to touch and pain. VSS. No SOB or difficulty breathing noted. Patient set to discharge back to facility with hospice services when available. Patient appears comfortable at this time. Catheter in place draining to gravity and is pale yellow in color. D5 continues infusing at this time. Discharge orders in place. Call light in reach. Oral care completed by dental hygenist.
[2023-08-05 15:42] VITALS: BP 134/69
[2023-08-05 21:01] VITALS: BP 109/55
--- NOTE | 2023-08-05 22:19 | NUR ---
ASSUMPTION OF CARE/ASSESSMENT: ASSUMED CARE OF PT AT 1900; PT ASLEEP IN BED BUT WAKES TO PAIN STIMULIL, ATTEMPTS TO COMMNUNICATE WITH PT VIA VISION BOARD UNSUCCESSFULL. PT IS DEAF AND POSSIBLY BLIND. PT OPENNING EYES BUT DOES NOT TRACK IN ROOM. PT MOANS OUT IN PAIN WITH ANY TOUCH OR PT CARE; PT MEDICATED WITH FENTANYL PRN FOR REPOSITIONING AND OTHER PT CARE. PT CURRENTLY ON RA WITH SPO2 98<, LUNG SOUNDS ARE CLEAR THROUGHOUT AND NO RESPIRATORY DISTRESS OBSERVED. SR ON MONITOR WITH HR 80'S, SBP 100 WITH MAP 65<; CONTINUOUS ACCESSORIES REPAIRER IN PLACE. ABD SOFT, AND HYPOACTIVE BOWEL SOUNDS NOTED. PT HAD SOME LIQUID STOOL NOTED DURING PT CARE. PT HAS NATION IN PLACE THAT IS DRAINING TO GRAVITY; YELLOW, CLEAR URINE NOTED. PT HAS NUMEROUS PRESSURE ULCETS LOCATED ON THE UPPER BACK, COCCYX AND BILAT. HEELS; ALL WOUNDS IN DRESSINGS THAT ARE C/D/I. PT Q 2HR TURNS.
[2023-08-06 00:21] VITALS: BP 115/58
[2023-08-06 04:45] VITALS: BP 126/59
--- NOTE | 2023-08-06 06:27 | NUR ---
SHIFT SUMMARY: NO ACUTE CHANGES THROUGHOUT THE SHIFT; ASSESSMENT UNCHANGED SINCE PREVIOUS NOTE. VITAL SIGNS STABLE THROUGHOUT THE NIGHT. Q2HR TURNS WITH PRN FENTANYL IVP FOR COMFORT. D5 @ 125 MLS/HR. WILL REPORT OFF TO ONCOMING RN.
[2023-08-06 07:42] VITALS: BP 119/56
--- NOTE | 2023-08-06 07:44 | NUR ---
RN assumed care of patient at this time. Assessment completed. VSS. IV running at 125 cc of D5. Q6 CBG ordered while on fluids. IV ABT hanging at this time. Patient appears comfortable. Q2 turning schedule ordered. Medicate for pain with gross motor movement. Patient to discharge on hospice to facility this morning around 1000. RN to remain on standby for any needs.
== END 2023-08-06 10:10 | disposition hospice, inpatient (51) | DRG 871 ==
LOC: ER 12:44 → PCU 17:37
PROVIDERS: Emergency Medicine; Internal Medicine; ADMIT Internal Medicine
DX: A41.9 Sepsis, unspecified organism (principal); G92.8 Other toxic encephalopathy; L89.154 Pressure ulcer of sacral region, stage 4; N39.0 Urinary tract infection, site not specified; E87.0 Hyperosmolality and hypernatremia; I48.91 Unspecified atrial fibrillation; H91.90 Unspecified hearing loss, unspecified ear; Z66 Do not resuscitate; R62.7 Adult failure to thrive; E87.6 Hypokalemia; E83.39 Other disorders of phosphorus metabolism; I48.0 Paroxysmal atrial fibrillation; I10 Essential (primary) hypertension; D63.8 Anemia in other chronic diseases classified elsewhere; R74.01 Elevation of levels of liver transaminase levels; E86.0 Dehydration; K56.41 Fecal impaction; I95.9 Hypotension, unspecified; J30.1 Allergic rhinitis due to pollen; R79.1 Abnormal coagulation profile; E78.5 Hyperlipidemia, unspecified; K21.9 Gastro-esophageal reflux disease without esophagitis; G89.29 Other chronic pain; L89.629 Pressure ulcer of left heel, unspecified stage; L89.619 Pressure ulcer of right heel, unspecified stage; D75.839 Thrombocytosis, unspecified; G62.9 Polyneuropathy, unspecified; Z79.01 Long term (current) use of anticoagulants
CPT/HCPCS: 36415; 51702; 70450; 80048; 80053; 80069; 81001; 82947; 83605; 83735; 84100; 85014; 85018; 85025; 85027; 85610; 87040; 87077; 87086; 87186; 94760; 94762; 96361; 96374; 99285-25; C1751; J2185; J3010; J3430; J7030; J7050; J7060; J7070